=== PATIENT | male | born 1955 | race Caucasian/White ===

== ENCOUNTER 2020-06-15 17:01 | Inpatient (IN) | payer OTHER ==
[2020-06-15] MEDS ORDERED: Benzocaine/Cetylpyridinium/Menthol Lozenge MUCMEM ONE (18:02)
--- NOTE | 2020-06-15 18:05 | EDM.PDOC ---
ED HPI GENERAL MEDICAL PROBLEM - General Chief Complaint: Respiratory Problem Stated Complaint: LAW ENF[employer]CEMENT Time Seen by Provider: 06/15/20 17:20 Source of Information: Reports: Patient, RN, RN Notes Reviewed History Limitations: Reports: No Limitations - History of Present Illness INITIAL COMMENTS - FREE TEXT/NARRATIVE: Patient presents to the ED from the [facility] for complaints of shortness of breath and sore throat. The patient reports his symptoms began this past 06/12/2020. He reports he tested positive for COVID on Friday from a swab that was collected on 06/09/2020. He reports a history of COPD; he is a former smoker with a quit date in 2004. He states he is not currently taking any medication for COPD. He denies fever, shaking chills, chest pain, palpitations, dyspepsia, abdominal pain, nausea, vomiting, diarrhea, or muscle aches. He does attest to non-productive cough. He has not taken any medications for the cough of sore throat. He is not on O2 at baseline. 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 - Related Data Allergies Allergy/AdvReac Type Severity Reaction Status Date / Time bee venom protein (honey bee) Allergy Severe Anaphylactic Verified 06/15/20 16:56 Shock Home Meds: Home Meds Acetaminophen 975 mg PO Q8HR PRN 01/12/17 [History] Albuterol [Proventil Neb Soln] 2.5 mg NEB Q6HRRT PRN 01/12/17 [History] Allopurinol [Zyloprim] 100 mg PO DAILY 01/12/17 [History] Ammonium Lactate [Lac-Hydrin Five] 226 gm TP ASDIRECTED PRN 01/12/17 [History] Budesonide/Formoterol [Symbicort 80-4.5 MCG] 2 puff INH BID 01/12/17 [History] Cholecalciferol (Vitamin D3) [Vitamin D3] 1,000 units PO BID 01/12/17 [History] Dextrose [Glucose] 4 gm PO ASDIRECTED PRN 01/12/17 [History] Ibrutinib [Imbruvica] 420 mg PO DAILY 01/12/17 [History] Insulin Glarg,Human.Rec.Analog [LantUS] 32 unit SUBCUT ACBREAKFAST 01/12/17 [History] Lidocaine 5% 35.44 gm TOP BID 01/12/17 [History] Lisinopril 2.5 mg PO DAILY 01/12/17 [History] Loperamide [Imodium] 2 mg PO Q6H PRN 01/12/17 [History] Magnesium Oxide 420 mg PO BID 01/12/17 [History] OXcarbazepine [Trileptal] 450 mg PO TID 01/12/17 [History] Ondansetron [Zofran ODT] 8 mg PO Q8HR PRN 01/12/17 [History] Ranitidine [Zantac] 150 mg PO BID 01/12/17 [History] Sildenafil Citrate [Sildenafil] 100 mg PO ASDIRECTED PRN 01/12/17 [History] Triamcinolone Acetonide [Triamcinolone Acetonide 0.1% Crm] 15 gm TOP BID 01/12/17 [History] atorvaSTATin [Lipitor] 80 mg PO BEDTIME 01/12/17 [History] glipiZIDE [Glucotrol XL] 10 mg PO ACBREAKFAST 01/12/17 [History] metFORMIN HCl [Metformin HCl] 1,000 mg PO BIDMEALS 01/12/17 [History] Past Medical History Cardiovascular History: Reports: High Cholesterol, Hypertension Respiratory History: Reports: COPD Gastrointestinal History: Reports: GERD Genitourinary History: Reports: Diabetic Nephropathy Musculoskeletal History: Reports: Back Pain, Chronic, Gout Neurological History: Reports: Other (See Below) Other Neuro History: PTSD Psychiatric History: Reports: Addiction, Depression, PTSD Endocrine/Metabolic History: Reports: Diabetes, Type II, Obesity/BMI 30+ Hematologic History: Reports: None Immunologic History: Reports: Immunosuppression Oncologic (Cancer) History: Reports: Leukemia Dermatologic History: Reports: Eczema, Psoriasis - Infectious Disease History Infectious Disease History: Reports: Novel Coronavirus - Past Surgical History HEENT Surgical History: Reports: Cataract Surgery Cardiovascular Surgical History: Reports: None Respiratory Surgical History: Reports: None GI Surgical History: Reports: Colonoscopy, Hernia Repair/Other Male Surgical History: Reports: None Musculoskeletal Surgical History: Reports: None Oncologic Surgical History: Reports: Bone Marrow Aspiration Social & Family History - Family History Family Medical History: No Pertinent Family History - Tobacco Use Tobacco Use Status *Q: Never Tobacco User Second Hand Smoke Exposure: No - Caffeine Use Caffeine Use: Reports: None - Recreational Drug Use Recreational Drug Use: No ED ROS GENERAL - Review of Systems Review Of Systems: Comprehensive ROS is negative, except as noted in HPI. ED EXAM, GENERAL - Physical Exam Exam: See Below Exam Limited By: No Limitations General Appearance: Alert, Mild Distress Eye Exam: Bilateral Eye: EOMI, Normal Inspection, PERRL Ears: Normal External Exam, Normal Canal, Hearing Grossly Normal, Normal TMs Ear Exam: Bilateral Ear: Auricle Normal, Canal Normal, TM normal Nose: Normal Inspection Throat/Mouth: Normal Inspection, Normal Voice, No Airway Compromise. No: Normal Oropharynx (Dry mucous membranes) Head: Atraumatic, Normocephalic Neck: Normal Inspection, Supple, Non-Tender, Full Range of Motion. No: Lymphadenopathy (L), Lymphadenopathy (R) Respiratory/Chest: Chest Non-Tender, Rhonchi, Wheezing, Accessory Muscle Use Cardiovascular: No Edema, No Gallop, No JVD, No Murmur, No Rub, Irregularly Irregular Peripheral Pulses: 2+: Radial (L), Radial (R) GI/Abdominal: Normal Bowel Sounds, Soft, No Organomegaly, No Abnormal Bruit, No Mass (Male) Exam: Deferred Rectal (Males) Exam: Deferred Back Exam: Normal Inspection, Full Range of Motion Extremities: Normal Inspection, Normal Range of Motion, Non-Tender, No Pedal Edema, Normal Capillary Refill Neurological: Alert, Oriented, CN II-XII Intact, Normal Cognition, Normal Gait, No Motor/Sensory Deficits Psychiatric: Normal Affect, Normal Mood Skin Exam: Warm, Dry, Intact, Normal Color, No Rash. No: Ecchymosis, Erythema, Mottled, Pallor, Petechiae #1 Interpretation EKG Date: 06/15/20 Time: 17:33 Rhythm: A-Fib Rate (Beats/Min): 123 [place]: Normal P-Wave: Present QRS: Normal ST-T: Normal QT: Normal Comparison: No Change EKG Interpretation Comments: AFib; No evidence of acute ischemia Course - Vital Signs Last Recorded V/S: Last Vital Signs Temp 98.3 F 06/15/20 16:56 Pulse 91 06/15/20 16:56 Resp 20 06/15/20 16:56 BP 135/100 H 06/15/20 16:56 Pulse Ox 93 L 06/15/20 16:56 - Orders/Labs/Meds Orders: Active Orders 24 hr Category Date Time Status Admission Diagnosis [ADT] Stat ADT 06/15/20 19:56 Ordered Admission Status [Patient Status] [ADT] Routine ADT 06/15/20 19:56 Ordered Cardiac Monitoring [RC] . DIRECTED Care 06/15/20 19:56 Ordered EKG Documentation Completion [RC] STAT Care 06/15/20 17:13 Active Labs: Laboratory Tests 06/15/20 06/15/20 06/15/20 Range/Units 17:55 17:55 17:55 WBC 7.1 (5.0-10.0) 10^3/uL RBC 4.80 (4.6-6.2) 10^6/uL Hgb 14.2 (14.0-18.0) g/dL Hct 41.7 (40.0-54.0) % MCV 86.9 (80-100) fL MCH 29.6 (27.0-34.0) pg MCHC 34.1 (33.0-35.0) g/dL Plt Count 140 L (150-450) 10^3/uL Neut % (Auto) 63.7 (42.2-75.2) % Lymph % (Auto) 27.3 (20.5-50.1) % Ocean % (Auto) 8.7 H (2-8) % Eos % (Auto) 0.0 L (1.0-3.0) % Baso % (Auto) 0.3 (0.0-1.0) % Add Manual Diff Yes Neutrophils % (Manual) 53 (42-75) % Band Neutrophils % 15 % Lymphocytes % (Manual) 26 (20-50) % Monocytes % (Manual) 5 (2-8) % Myelocytes % 1 D-Dimer, Quantitative 430 H (0-400) ng/mL Sodium 134 L (136-145) mmol/L Potassium 4.4 (3.5-5.1) mmol/L Chloride 99 (98-107) mmol/L Carbon Dioxide 27 (21-32) mmol/L Anion Gap 12.4 (7-13) mEq/L BUN 28 H (7-18) mg/dL Creatinine 1.29 (0.70-1.30) mg/dL Est Cr Clr Drug Dosing 58.95 mL/min Estimated GFR (MDRD) 56 BUN/Creatinine Ratio 21.7 (No establ ref range) Glucose 279 H (74-99) mg/dL Lactic Acid (0.4-2.0) mmol/L Calcium 8.2 L (8.5-10.1) mg/dL Total Bilirubin 0.4 (0.2-1.0) mg/dL AST 28 (15-37) U/L ALT 41 (16-63) U/L Alkaline Phosphatase 55 (46-116) U/L Troponin I 0.017 (0.000-0.056) ng/mL Total Protein 6.0 L (6.4-8.2) g/dL Albumin 3.2 L (3.4-5.0) g/dL Globulin 2.8 Albumin/Globulin Ratio 1.14 06/15/20 Range/Units 17:55 WBC (5.0-10.0) 10^3/uL RBC (4.6-6.2) 10^6/uL Hgb (14.0-18.0) g/dL Hct (40.0-54.0) % MCV (80-100) fL MCH (27.0-34.0) pg MCHC (33.0-35.0) g/dL Plt Count (150-450) 10^3/uL Neut % (Auto) (42.2-75.2) % Lymph % (Auto) (20.5-50.1) % Ocean % (Auto) (2-8) % Eos % (Auto) (1.0-3.0) % Baso % (Auto) (0.0-1.0) % Add Manual Diff Neutrophils % (Manual) (42-75) % Band Neutrophils % % Lymphocytes % (Manual) (20-50) % Monocytes % (Manual) (2-8) % Myelocytes % D-Dimer, Quantitative (0-400) ng/mL Sodium (136-145) mmol/L Potassium (3.5-5.1) mmol/L Chloride (98-107) mmol/L Carbon Dioxide (21-32) mmol/L Anion Gap (7-13) mEq/L BUN (7-18) mg/dL Creatinine (0.70-1.30) mg/dL Est Cr Clr Drug Dosing mL/min Estimated GFR (MDRD) BUN/Creatinine Ratio (No establ ref range) Glucose (74-99) mg/dL Lactic Acid 1.3 (0.4-2.0) mmol/L Calcium (8.5-10.1) mg/dL Total Bilirubin (0.2-1.0) mg/dL AST (15-37) U/L ALT (16-63) U/L Alkaline Phosphatase (46-116) U/L Troponin I (0.000-0.056) ng/mL Total Protein (6.4-8.2) g/dL Albumin (3.4-5.0) g/dL Globulin Albumin/Globulin Ratio Meds: Medications Discontinued Medications Generic Name Dose Route Start Last Admin Trade Name Freq PRN Reason Stop Dose Admin Benzocaine/Menthol 1 lozenge 06/15/20 18:02 06/15/20 18:09 Cepacol Sore Throat MUCMEM 06/15/20 18:03 1 lozenge ONETIME ONE Administration Dexamethasone 6 mg 06/15/20 18:50 06/15/20 19:44 Dexamethasone PO 06/15/20 18:51 6 mg ONETIME ONE Administration - Re-Assessments/Exams Free Text/Narrative Re-Assessment/Exam: 06/15/20 CXR significant for COPD, inflammation, and COVID infection. Blood work unremarkable for acute processes. Given new onset AFib with COVID infection, case discussed with Dr. Machuca. Dr. Machuca kindly agreed to accept patient to observation with telemetry. Departure - Departure Time of Disposition: 19:59 Disposition: Refer to Observation Condition: Good Clinical Impression: Atrial fibrillation by electrocardiogram, Pneumonia due to COVID-19 virus - Discharge Information Forms: ED Department Discharge Sepsis Event Note (ED) - Evaluation Sepsis Screening Result: No Definite Risk - Focused Exam Vital Signs: Vital Signs Temp Pulse Resp BP Pulse Ox 06/15/20 16:56 98.3 F 91 20 135/100 H 93 L - My Orders Last 24 Hours: My Active Orders 06/15/20 17:13 EKG Documentation Completion [RC] STAT 06/15/20 19:56 Admission Diagnosis [ADT] Stat Admission Status [Patient Status] [ADT] Routine Cardiac Monitoring [RC] . DIRECTED - Assessment/Plan Last 24 Hours: My Active Orders 06/15/20 17:13 EKG Documentation Completion [RC] STAT 06/15/20 19:56 Admission Diagnosis [ADT] Stat Admission Status [Patient Status] [ADT] Routine Cardiac Monitoring [RC] . DIRECTED
[2020-06-15 18:28] LABS: ANION GAP 12.4 mEq/L (7-13)
[2020-06-15] MEDS ORDERED: Dexamethasone 6 MG TABLET PO ONE (18:50)
--- NOTE | 2020-06-15 19:12 | CR ---
PROCEDURE INFORMATION: Exam: XR Chest, 1 View Exam date and time: 06/15/2020 6:55 PM Age: 65 years old Clinical indication: Shortness of breath; Patient HX: Covid +; Additional info: Chest pain TECHNIQUE: Imaging protocol: XR of the chest Views: 1 view. COMPARISON: CT Chest Abdomen Pelvis w Cont 10/21/2018 1:33 PM FINDINGS: Lungs: Persistent bandlike atelectasis left base may reflect compressive atelectasis due to diaphragmatic elevation. There is mild nonspecific patchy linear density at right lung base which could be atelectatic, or inflammatory. Trace fluid right minor fissureThere is no interstitial disease. There is mild nonspecific prominence of the pulmonary vasculature. Pleural space: Small right pleural effusion. Heart/Mediastinum: Mild cardiomegaly. Diaphragm: There is chronic elevation of the left hemidiaphragm Bones/joints: No acute bony findings are identified. IMPRESSION: 1. Findings suggest an element of pulmonary venous hypertension. There is no overt sign of pulmonary edema. Volume overload cannot be excluded. 2. Atelectasis left base is persistent is likely compressive and is likely related to diaphragmatic elevation. 3. There is mild nonspecific patchy linear density at right lung base which could be atelectatic, or inflammatory.
[2020-06-15] MEDS ORDERED: Ondansetron 4 MG/2 ML SDV IVPUSH PRN (20:21)
[2020-06-15] MEDS ORDERED: Ondansetron 4 MG Tab.DIS PO PRN (20:21)
[2020-06-15] MEDS ORDERED: 50% Dextrose in Water 50 ML Syringe IV PRN (20:21)
[2020-06-15] MEDS ORDERED: Glucagon,Human Recombinant 1 MG Vial IM PRN ×2 (20:21)
[2020-06-15] MEDS ORDERED: 50% Dextrose in Water 50 ML Syringe IVPUSH PRN (20:21)
[2020-06-15] MEDS ORDERED: diphenhydrAMINE 50 MG/ML SDV IVPUSH ONE (20:44)
[2020-06-15] MEDS ORDERED: Albuterol 0.083% 2.5 MG/3 ML Neb Soln NEB PRN (20:49)
[2020-06-15] MEDS ORDERED: Loperamide 2 MG Cap PO PRN (20:49)
--- NOTE | 2020-06-15 21:00 | PCM.HP ---
H&P History of Present Illness - General Date of Service: 06/15/20 Admit Problem/Dx: Admission Diagnosis/Problem Admission Diagnosis/Problem Atrial fibrillation by electrocardiogram Source of Information: Patient, Old Records, Provider History Limitations: Reports: No Limitations - History of Present Illness Initial Comments - Free Text/Narative: Mr. Stafford is a 65-year-old male with medical history significant for diabetes, COPD, CLL on ibrutinib, and past medical history of tobacco use who quit in 2004 who was brought to the ED by law enforcement for shortness of breath. Patient reports that he was tested for COVID-19 as part of mass testing on Friday, . Reports that his test came back positive on 06/12/2020. States that he started having shortness of breath yesterday. States that he is short of breath at rest and not worsens with activity. Reports that he has chronic cough which is unchanged from baseline. Denies any fevers, chills, nausea, vomiting, diarrhea, constipation, dysuria, hematuria, change in taste or smell, hemoptysis, melena, hematochezia, or any other symptoms. In the ED, chest x-ray showed bilateral pulmonary infiltrates his D-dimer was not elevated at 430. Sodium was borderline low at 134. Patient was saturating well on room air but was placed on oxygen for comfort. - Related Data Allergies/Adverse Reactions: Allergies Allergy/AdvReac Type Severity Reaction Status Date / Time bee venom protein (honey bee) Allergy Severe Anaphylactic Verified 06/15/20 16:56 Shock Home Medications: Home Meds Acetaminophen 975 mg PO Q8HR PRN 01/12/17 [History] Albuterol [Proventil Neb Soln] 2.5 mg NEB Q6HRRT PRN 01/12/17 [History] Allopurinol [Zyloprim] 100 mg PO DAILY 01/12/17 [History] Ammonium Lactate [Lac-Hydrin Five] 226 gm TP ASDIRECTED PRN 01/12/17 [History] Budesonide/Formoterol [Symbicort 80-4.5 MCG] 2 puff INH BID 01/12/17 [History] Cholecalciferol (Vitamin D3) [Vitamin D3] 1,000 units PO BID 01/12/17 [History] Dextrose [Glucose] 4 gm PO ASDIRECTED PRN 01/12/17 [History] Ibrutinib [Imbruvica] 420 mg PO DAILY 01/12/17 [History] Insulin Glarg,Human.Rec.Analog [LantUS] 32 unit SUBCUT ACBREAKFAST 01/12/17 [History] Lidocaine 5% 35.44 gm TOP BID 01/12/17 [History] Lisinopril 2.5 mg PO DAILY 01/12/17 [History] Loperamide [Imodium] 2 mg PO Q6H PRN 01/12/17 [History] Magnesium Oxide 420 mg PO BID 01/12/17 [History] OXcarbazepine [Trileptal] 450 mg PO TID 01/12/17 [History] Ondansetron [Zofran ODT] 8 mg PO Q8HR PRN 01/12/17 [History] Ranitidine [Zantac] 150 mg PO BID 01/12/17 [History] Sildenafil Citrate [Sildenafil] 100 mg PO ASDIRECTED PRN 01/12/17 [History] Triamcinolone Acetonide [Triamcinolone Acetonide 0.1% Crm] 15 gm TOP BID 01/12/17 [History] atorvaSTATin [Lipitor] 80 mg PO BEDTIME 01/12/17 [History] glipiZIDE [Glucotrol XL] 10 mg PO ACBREAKFAST 01/12/17 [History] metFORMIN HCl [Metformin HCl] 1,000 mg PO BIDMEALS 01/12/17 [History] Past Medical History Cardiovascular History: Reports: High Cholesterol, Hypertension Respiratory History: Reports: COPD Gastrointestinal History: Reports: GERD Genitourinary History: Reports: Diabetic Nephropathy Musculoskeletal History: Reports: Back Pain, Chronic, Gout Neurological History: Reports: Other (See Below) Other Neuro History: PTSD Psychiatric History: Reports: Addiction, Depression, PTSD Endocrine/Metabolic History: Reports: Diabetes, Type II, Obesity/BMI 30+ Hematologic History: Reports: None Immunologic History: Reports: Immunosuppression Oncologic (Cancer) History: Reports: Leukemia Dermatologic History: Reports: Eczema, Psoriasis - Infectious Disease History Infectious Disease History: Reports: Novel Coronavirus - Past Surgical History HEENT Surgical History: Reports: Cataract Surgery Cardiovascular Surgical History: Reports: None Respiratory Surgical History: Reports: None GI Surgical History: Reports: Colonoscopy, Hernia Repair/Other Male Surgical History: Reports: None Musculoskeletal Surgical History: Reports: None Oncologic Surgical History: Reports: Bone Marrow Aspiration Social & Family History - Family History Family Medical History: No Pertinent Family History - Tobacco Use Tobacco Use Status *Q: Never Tobacco User Second Hand Smoke Exposure: No - Caffeine Use Caffeine Use: Reports: None - Recreational Drug Use Recreational Drug Use: No H&P Review of Systems - Review of Systems: Review Of Systems: Comprehensive ROS is negative, except as noted in HPI. Exam - Exam Exam: See Below - Vital Signs Vital Signs: Last Vital Signs Temp 98.9 F 06/15/20 20:22 Pulse 92 06/15/20 20:22 Resp 24 H 06/15/20 20:22 BP 125/79 06/15/20 20:22 Pulse Ox 94 L 06/15/20 20:22 Weight: 233 lb 3.2 oz - Exam Quality Assessment: Supplemental Oxygen (2L via NC) General: Alert, Oriented, Cooperative, Mild Distress HEENT: Conjunctiva Clear, EOMI, Hearing Intact, Mucosa Moist & [place] Neck: Supple, Trachea Midline Lungs: Rales Cardiovascular: Regular Rate, Normal S1, Normal S2, Irregular Rhythm GI/Abdominal Exam: Normal Bowel Sounds, Soft, Non-Tender, No Distention Extremities: Normal Inspection, Non-Tender Peripheral Pulses: 2+: Radial (L), Dorsalis Pedis (L), Dorsalis Pedis (R) Skin: Warm, Dry, Intact Neuro Extensive - Mental Status: Alert, Oriented x3, Normal Mood/Affect Psychiatric: Alert, Normal Affect, Normal Mood - Patient Data Lab Results Last 24 hrs: Laboratory Results - last 24 hr 06/15/20 06/15/20 06/15/20 Range/Units 17:55 17:55 17:55 WBC 7.1 (5.0-10.0) 10^3/uL RBC 4.80 (4.6-6.2) 10^6/uL Hgb 14.2 (14.0-18.0) g/dL Hct 41.7 (40.0-54.0) % MCV 86.9 (80-100) fL MCH 29.6 (27.0-34.0) pg MCHC 34.1 (33.0-35.0) g/dL Plt Count 140 L (150-450) 10^3/uL Neut % (Auto) 63.7 (42.2-75.2) % Lymph % (Auto) 27.3 (20.5-50.1) % [place] % (Auto) 8.7 H (2-8) % Eos % (Auto) 0.0 L (1.0-3.0) % Baso % (Auto) 0.3 (0.0-1.0) % Add Manual Diff Yes Neutrophils % (Manual) 53 (42-75) % Band Neutrophils % 15 % Lymphocytes % (Manual) 26 (20-50) % Monocytes % (Manual) 5 (2-8) % Myelocytes % 1 D-Dimer, Quantitative 430 H (0-400) ng/mL Sodium 134 L (136-145) mmol/L Potassium 4.4 (3.5-5.1) mmol/L Chloride 99 (98-107) mmol/L Carbon Dioxide 27 (21-32) mmol/L Anion Gap 12.4 (7-13) mEq/L BUN 28 H (7-18) mg/dL Creatinine 1.29 (0.70-1.30) mg/dL Est Cr Clr Drug Dosing 58.95 mL/min Estimated GFR (MDRD) 56 BUN/Creatinine Ratio 21.7 (No establ ref range) Glucose 279 H (74-99) mg/dL Lactic Acid (0.4-2.0) mmol/L Calcium 8.2 L (8.5-10.1) mg/dL Total Bilirubin 0.4 (0.2-1.0) mg/dL AST 28 (15-37) U/L ALT 41 (16-63) U/L Alkaline Phosphatase 55 (46-116) U/L Troponin I 0.017 (0.000-0.056) ng/mL Total Protein 6.0 L (6.4-8.2) g/dL Albumin 3.2 L (3.4-5.0) g/dL Globulin 2.8 Albumin/Globulin Ratio 1.14 06/15/20 Range/Units 17:55 WBC (5.0-10.0) 10^3/uL RBC (4.6-6.2) 10^6/uL Hgb (14.0-18.0) g/dL Hct (40.0-54.0) % MCV (80-100) fL MCH (27.0-34.0) pg MCHC (33.0-35.0) g/dL Plt Count (150-450) 10^3/uL Neut % (Auto) (42.2-75.2) % Lymph % (Auto) (20.5-50.1) % [place] % (Auto) (2-8) % Eos % (Auto) (1.0-3.0) % Baso % (Auto) (0.0-1.0) % Add Manual Diff Neutrophils % (Manual) (42-75) % Band Neutrophils % % Lymphocytes % (Manual) (20-50) % Monocytes % (Manual) (2-8) % Myelocytes % D-Dimer, Quantitative (0-400) ng/mL Sodium (136-145) mmol/L Potassium (3.5-5.1) mmol/L Chloride (98-107) mmol/L Carbon Dioxide (21-32) mmol/L Anion Gap (7-13) mEq/L BUN (7-18) mg/dL Creatinine (0.70-1.30) mg/dL Est Cr Clr Drug Dosing mL/min Estimated GFR (MDRD) BUN/Creatinine Ratio (No establ ref range) Glucose (74-99) mg/dL Lactic Acid 1.3 (0.4-2.0) mmol/L Calcium (8.5-10.1) mg/dL Total Bilirubin (0.2-1.0) mg/dL AST (15-37) U/L ALT (16-63) U/L Alkaline Phosphatase (46-116) U/L Troponin I (0.000-0.056) ng/mL Total Protein (6.4-8.2) g/dL Albumin (3.4-5.0) g/dL Globulin Albumin/Globulin Ratio Result Diagrams: 06/15/20 17:55 06/15/20 17:55 - Problem List (1) COPD (chronic obstructive pulmonary disease) SNOMED Code(s): 23390180 ICD Code: J44.9 - CHRONIC OBSTRUCTIVE PULMONARY DISEASE, UNSPECIFIED Status: Acute Current Visit: Yes (2) CLL (chronic lymphocytic leukemia) SNOMED Code(s): 95734835 ICD Code: C91.10 - CHRONIC LYMPHOCYTIC LEUK OF B-CELL TYPE NOT ACHIEVE REMIS Status: Acute Current Visit: Yes (3) Obesity SNOMED Code(s): 498733637, 033999148 ICD Code: E66.9 - OBESITY, UNSPECIFIED Status: Acute Current Visit: Yes (4) Hyponatremia SNOMED Code(s): 81765820 ICD Code: E87.1 - HYPO-OSMOLALITY AND HYPONATREMIA Status: Acute Current Visit: Yes (5) Atrial fibrillation by electrocardiogram SNOMED Code(s): 717514194 ICD Code: I48.91 - UNSPECIFIED ATRIAL FIBRILLATION Status: Acute Current Visit: No (6) Pneumonia due to COVID-19 virus SNOMED Code(s): 601000406267282771 ICD Code: U07.1 - COVID-19; J12.89 - OTHER VIRAL PNEUMONIA Status: Acute Current Visit: No Problem List Initiated/Reviewed/Updated: Yes Orders Last 24hrs: Active Orders 24 hr Category Date Time Status Admission Diagnosis [ADT] Stat ADT 06/15/20 19:56 Ordered Admission Status [Patient Status] [ADT] Routine ADT 06/15/20 19:56 Active Blood Glucose Check, Bedside [RC] QIDACANDBED Care 06/15/20 20:21 Active Cardiac Monitoring [RC] . DIRECTED Care 06/15/20 19:56 Active Diabetes Education [RC] Click to Edit Care 06/15/20 20:22 Active EKG Documentation Completion [RC] STAT Care 06/15/20 17:13 Active Notify Provider [RC] PRN Care 06/15/20 20:22 Active Oxygen Therapy [RC] PRN Care 06/15/20 20:22 Active RT Aerosol Therapy [RC] ASDIRECTED Care 06/15/20 20:50 Ordered Up ad Alejandrina [RC] ASDIRECTED Care 06/15/20 20:21 Active VTE/DVT Education [RC] PER UNIT ROUTINE Care 06/15/20 20:22 Active Verify Patient Consent Obtain [RC] ASDIRECTED Care 06/15/20 20:44 Ordered Vital Signs [RC] Q4H Care 06/15/20 20:22 Active Consistent Carbohydrate Diet [DIET] Diet 06/15/20 Dinner Active BASIC METABOLIC PANEL,BMP [CHEM] AM Lab 06/16/20 05:11 Ordered CBC WITH AUTO DIFF [HEME] AM Lab 06/16/20 05:11 Ordered CRP [C-REACTIVE PROTEIN] [REF] DAILY Lab 06/15/20 21:00 Ordered D-DIMER QUANTITATIVE [COAG] DAILY Lab 06/16/20 05:11 Ordered D-DIMER QUANTITATIVE [COAG] DAILY Lab 06/17/20 05:11 Ordered D-DIMER QUANTITATIVE [COAG] DAILY Lab 06/18/20 05:11 Ordered D-DIMER QUANTITATIVE [COAG] DAILY Lab 06/19/20 05:11 Ordered FRESH FROZEN PLASMA [BBK] Routine Lab 06/15/20 20:44 Ordered HEPATIC FUNCTION PANEL,HFP [CHEM] DAILY Lab 06/16/20 21:00 Ordered HEPATIC FUNCTION PANEL,HFP [CHEM] DAILY Lab 06/17/20 21:00 Ordered HEPATIC FUNCTION PANEL,HFP [CHEM] DAILY Lab 06/18/20 21:00 Ordered HEPATIC FUNCTION PANEL,HFP [CHEM] DAILY Lab 06/19/20 21:00 Ordered HEPATIC FUNCTION PANEL,HFP [CHEM] Stat Lab 06/15/20 20:46 Ordered MAGNESIUM [CHEM] AM Lab 06/16/20 05:11 Ordered PHOSPHORUS [CHEM] AM Lab 06/16/20 05:11 Ordered Acetaminophen [TylenoL] Med 06/15/20 20:21 Active 650 mg PO Q4H PRN Albuterol [Proventil Neb Soln] Med 06/15/20 20:49 Ordered 2.5 mg NEB Q6HRRT PRN Budesonide/Formoterol Med 06/15/20 21:00 Ordered 2 puff INH BID Cholecalciferol (Vitamin D3) [Vitamin D3] Med 06/15/20 21:00 Ordered 1,000 units PO BID Dextrose 50% in Water Med 06/15/20 20:21 Active 25 ml IVPUSH ASDIRECTED PRN Dextrose 50% in Water Med 06/15/20 20:21 Active 50 ml IV ASDIRECTED PRN Docusate Sodium/Sennosides [Senna Plus] Med 06/15/20 20:21 Active 1 tab PO BEDTIME PRN Glucagon,Human Recombinant [GlucaGen] Med 06/15/20 20:21 Active 1 mg IM ASDIRECTED PRN Glucagon,Human Recombinant [GlucaGen] Med 06/15/20 20:21 Active 1 mg IM ONETIME PRN Insulin Lispro [HumaLOG] Med 06/15/20 21:00 Ordered See Protocol SUBCUT WITHMEALSANDBED Lisinopril [Lisinopril] Med 06/16/20 09:00 Ordered 2.5 mg PO DAILY Loperamide [Imodium] Med 06/15/20 20:49 Ordered 2 mg PO Q6H PRN Magnesium Oxide [Magnesium Oxide] Med 06/15/20 21:00 Ordered 420 mg PO BID OXcarbazepine [Trileptal] Med 06/15/20 21:00 Ordered 450 mg PO TID Ondansetron [Zofran ODT] Med 06/15/20 20:21 Active 4 mg PO Q6H PRN Ondansetron [Zofran] Med 06/15/20 20:21 Active 4 mg IVPUSH Q6H PRN Ranitidine [Zantac] Med 06/15/20 21:00 Ordered 150 mg PO BID Remdesivir 100 mg Med 06/16/20 21:00 Ordered Sodium Chloride 0.9% [Normal Saline] 100 ml IV Q24H Remdesivir 200 mg Med 06/15/20 20:46 Ordered Sodium Chloride 0.9% [Normal Saline] 210 ml IV ONETIME allopurinoL [Zyloprim] Med 06/16/20 09:00 Ordered 100 mg PO DAILY dexAMETHasone [Decadron] Med 06/16/20 09:00 Ordered 6 mg IVPUSH Q24H diphenhydrAMINE [Benadryl] Med 06/15/20 20:44 Once 25 mg IVPUSH ONETIME ONE Transfuse Fresh Frozen Plasma [COMM] Routine Oth 06/15/20 20:44 Ordered Resuscitation Status Routine Resus Stat 06/15/20 20:21 Ordered Medication Orders Acetaminophen (Tylenol) 650 mg PO Q4H PRN PRN Reason: Pain Albuterol (Proventil Neb Soln) 2.5 mg NEB Q6HRRT PRN PRN Reason: Shortness of Breath Allopurinol (Zyloprim) 100 mg PO DAILY SILAS Cholecalciferol (Vitamin D3) mcg PO BID SILAS Dexamethasone (Decadron) 6 mg IVPUSH Q24H SILAS Stop: 06/24/20 09:01 Dextrose/Water (Dextrose 50% In Water) 25 ml IVPUSH ASDIRECTED PRN PRN Reason: Hypoglycemia Dextrose/Water (Dextrose 50% In Water) 50 ml IV ASDIRECTED PRN PRN Reason: Hypoglycemia Diphenhydramine HCl (Benadryl) 25 mg IVPUSH ONETIME ONE Stop: 06/15/20 20:45 Glucagon (Glucagen) 1 mg IM ONETIME PRN PRN Reason: Hypoglycemia Glucagon (Glucagen) 1 mg IM ASDIRECTED PRN PRN Reason: Hypoglycemia Remdesivir 200 mg/ Sodium (Chloride) 210 mls @ 210 mls/hr IV ONETIME ONE Stop: 06/15/20 20:47 Remdesivir 100 mg/ Sodium (Chloride) 100 mls @ 100 mls/hr IV Q24H SILAS Stop: 06/19/20 21:59 Insulin Human Lispro (Humalog) 0 unit SUBCUT WITHMEALSANDBED SILAS; Protocol Loperamide HCl (Imodium) 2 mg PO Q6H PRN PRN Reason: Diarrhea Non-Formulary Medication (Budesonide/Formoterol) 2 puff INH BID [facility] Non-Formulary Medication (Lisinopril [Lisinopril]) 2.5 mg PO DAILY [facility] Non-Formulary Medication (Magnesium Oxide [Magnesium Oxide]) 420 mg PO BID [facility] Non-Formulary Medication (Ranitidine [Zantac]) 150 mg PO BID [facility]IL[facility] Ondansetron HCl (Zofran Odt) 4 mg PO Q6H PRN PRN Reason: nausea, able to take PO Ondansetron HCl (Zofran) 4 mg IVPUSH Q6H PRN PRN Reason: Nausea/Vomiting Oxcarbazepine (Trileptal) 450 mg PO TID [facility]IL[facility] Senna/Docusate Sodium (Senna Plus) 1 tab PO BEDTIME PRN PRN Reason: Constipation Assessment/Plan Comment:: COVID-19 pneumonia: Patient presented with shortness of breath. Chest x-ray showing bilateral groundglass opacities concerning for pneumonia. Patient desaturated to 89% on room air during time of my assessment. Telemetry Supplemental oxygen, titrate to SPO2 of 88 to 92% Incentive spirometer Decadron Remdesivir Convalescent plasma Patient understands that convalescent plasma and remdesivir investigational therapies and that risks and benefits of treatment are not supported by extensive studies. He agrees to receiving both therapies. #New onset A. fib: Rate controlled. Likely due to respiratory illness from COVID-19 versus COPD. However, COPD seems to be well controlled. Telemetry monitoring [id number] score is 2 for age and history of diabetes. Needs lifetime anticoagulation. Will discuss in the morning #Diabetes mellitus Hold oral diabetes medications Cover with sliding scale insulin and hypoglycemia protocol #Hypertension Continue lisinopril #Obesity Weight loss counseling DVT prophylaxis: Eliquis GI prophylaxis: Diabetic diet CODE STATUS: Full code per patient preference
[2020-06-15] MEDS: Insulin Lispro 100 Units/ML 3 ML Vial SUBCUT SCH (21:49)
[2020-06-15] MEDS: Famotidine 20 MG Tab PO SCH (21:52)
[2020-06-15] MEDS: Cholecalciferol (Vitamin D3) 25 MCG Tab PO SCH (21:53)
[2020-06-15] MEDS: OXcarbazepine 300 MG Tab PO SCH (21:54)
[2020-06-15] MEDS: Formoterol/Mometasone 100-5 MCG 8.8 GM Inhaler IH SCH (22:13)
[2020-06-15] MEDS ORDERED: Benzocaine/Cetylpyridinium/Menthol Lozenge MUCMEM PRN (23:00)
[2020-06-15] MEDS: Acetaminophen 325 MG Tab PO PRN (23:40)
[2020-06-16] MEDS ORDERED: diphenhydrAMINE 50 MG/ML SDV ONE (05:13)
[2020-06-16 06:55] LABS: ANION GAP 14.5 mEq/L (7-13); CHLORIDE,CL 99 mmol/L (98-107); SODIUM,NA 134 mmol/L (136-145)
[2020-06-16] MEDS: Insulin Lispro 100 Units/ML 3 ML Vial SUBCUT SCH ×4 (08:06→22:40)
[2020-06-16] MEDS: Formoterol/Mometasone 100-5 MCG 8.8 GM Inhaler IH SCH ×2 (08:09→20:51)
[2020-06-16] MEDS: Lisinopril 5 MG Tab PO SCH (08:13)
[2020-06-16] MEDS: OXcarbazepine 300 MG Tab PO SCH ×3 (08:13→20:52)
[2020-06-16] MEDS: Cholecalciferol (Vitamin D3) 25 MCG Tab PO SCH ×2 (08:13→20:40)
[2020-06-16] MEDS: Famotidine 20 MG Tab PO SCH ×2 (08:13→20:39)
[2020-06-16] MEDS: Dexamethasone 4 MG/ML SDV IVPUSH SCH (08:14)
[2020-06-16] MEDS: Allopurinol 100 MG Tab PO SCH (08:14)
[2020-06-16] MEDS ORDERED: Glucagon,Human Recombinant 1 MG Vial IM PRN ×3 (08:46→14:23)
[2020-06-16] MEDS ORDERED: 50% Dextrose in Water 50 ML Syringe IV PRN ×3 (08:46→14:23)
[2020-06-16] MEDS ORDERED: Diltiazem IR 30 MG Tab PO SCH ×2 (09:00→18:15)
[2020-06-16] MEDS ORDERED: Metoprolol Tartrate 25 MG Tab PO SCH (09:00)
[2020-06-16] MEDS ORDERED: Metoprolol Tartrate 5 MG/5 ML SDV IVPUSH ONE (09:38)
[2020-06-16] MEDS: Acetaminophen 325 MG Tab PO PRN ×2 (09:46→21:36)
[2020-06-16] MEDS: Apixaban 5 MG Tab PO SCH ×2 (09:47→20:39)
[2020-06-16] MEDS ORDERED: 50% Dextrose in Water 50 ML Syringe IVPUSH ONE ×2 (10:19→11:00)
--- NOTE | 2020-06-16 10:30 | PCM.PN ---
- General Info Date of Service: 06/16/20 Admission Dx/Problem (Free Text): Admission Diagnosis/Problem Admission Diagnosis/Problem Atrial fibrillation by electrocardiogram Subjective Update: Patient continues to have O2 requirement. Tachycardic today. Denies fevers, chills, chest pain, shortness of breath, n/v/d/c, dysuria, or any new symptoms. - Review of Systems General: Reports: No Symptoms HEENT: Reports: No Symptoms Pulmonary: Reports: Shortness of Breath Cardiovascular: Reports: No Symptoms Gastrointestinal: Reports: No Symptoms Genitourinary: Reports: No Symptoms Musculoskeletal: Reports: No Symptoms Skin: Reports: No Symptoms Neurological: Reports: No Symptoms Psychiatric: Reports: No Symptoms - Patient Data Vitals - Most Recent: Last Vital Signs Temp 97.3 F 06/16/20 09:42 Pulse 146 H 06/16/20 09:48 Resp 22 H 06/16/20 09:42 BP 99/78 06/16/20 09:48 Pulse Ox 94 L 06/16/20 09:42 Weight - Most Recent: 233 lb 3.2 oz I&O - Last 24 Hours: Intake & Output 06/15/20 06/16/20 06/16/20 22:59 06:59 14:59 Intake Total 250 806 Balance 250 806 Lab Results Last 24 Hours: Laboratory Results - last 24 hr 06/15/20 06/15/20 06/15/20 Range/Units 17:55 17:55 17:55 WBC 7.1 (5.0-10.0) 10^3/uL RBC 4.80 (4.6-6.2) 10^6/uL Hgb 14.2 (14.0-18.0) g/dL Hct 41.7 (40.0-54.0) % MCV 86.9 (80-100) fL MCH 29.6 (27.0-34.0) pg MCHC 34.1 (33.0-35.0) g/dL Plt Count 140 L (150-450) 10^3/uL Neut % (Auto) 63.7 (42.2-75.2) % Lymph % (Auto) 27.3 (20.5-50.1) % [place]undy % (Auto) 8.7 H (2-8) % Eos % (Auto) 0.0 L (1.0-3.0) % Baso % (Auto) 0.3 (0.0-1.0) % Add Manual Diff Yes Neutrophils % (Manual) 53 (42-75) % Band Neutrophils % 15 % Lymphocytes % (Manual) 26 (20-50) % Monocytes % (Manual) 5 (2-8) % Myelocytes % 1 D-Dimer, Quantitative 430 H (0-400) ng/mL Sodium 134 L (136-145) mmol/L Potassium 4.4 (3.5-5.1) mmol/L Chloride 99 (98-107) mmol/L Carbon Dioxide 27 (21-32) mmol/L Anion Gap 12.4 (7-13) mEq/L BUN 28 H (7-18) mg/dL Creatinine 1.29 (0.70-1.30) mg/dL Est Cr Clr Drug Dosing 58.95 mL/min Estimated GFR (MDRD) 56 BUN/Creatinine Ratio 21.7 (No establ ref range) Glucose 279 H (74-99) mg/dL POC Glucose (70-105) mg/dl Lactic Acid (0.4-2.0) mmol/L Calcium 8.2 L (8.5-10.1) mg/dL Phosphorus (2.6-4.7) mg/dL Magnesium (1.8-2.4) mg/dL Total Bilirubin 0.4 (0.2-1.0) mg/dL Direct Bilirubin (0.0-0.2) mg/dL Indirect Bilirubin AST 28 (15-37) U/L ALT 41 (16-63) U/L Alkaline Phosphatase 55 (46-116) U/L Troponin I 0.017 (0.000-0.056) ng/mL C-Reactive Protein (0.0-0.9) mg/dL Total Protein 6.0 L (6.4-8.2) g/dL Albumin 3.2 L (3.4-5.0) g/dL Globulin 2.8 Albumin/Globulin Ratio 1.14 Blood Type 06/15/20 06/15/20 06/15/20 Range/Units 17:55 17:55 17:55 WBC (5.0-10.0) 10^3/uL RBC (4.6-6.2) 10^6/uL Hgb (14.0-18.0) g/dL Hct (40.0-54.0) % MCV (80-100) fL MCH (27.0-34.0) pg MCHC (33.0-35.0) g/dL Plt Count (150-450) 10^3/uL Neut % (Auto) (42.2-75.2) % Lymph % (Auto) (20.5-50.1) % Dundy % (Auto) (2-8) % Eos % (Auto) (1.0-3.0) % Baso % (Auto) (0.0-1.0) % Add Manual Diff Neutrophils % (Manual) (42-75) % Band Neutrophils % % Lymphocytes % (Manual) (20-50) % Monocytes % (Manual) (2-8) % Myelocytes % D-Dimer, Quantitative (0-400) ng/mL Sodium (136-145) mmol/L Potassium (3.5-5.1) mmol/L Chloride (98-107) mmol/L Carbon Dioxide (21-32) mmol/L Anion Gap (7-13) mEq/L BUN (7-18) mg/dL Creatinine (0.70-1.30) mg/dL Est Cr Clr Drug Dosing mL/min Estimated GFR (MDRD) BUN/Creatinine Ratio (No establ ref range) Glucose (74-99) mg/dL POC Glucose (70-105) mg/dl Lactic Acid 1.3 (0.4-2.0) mmol/L Calcium (8.5-10.1) mg/dL Phosphorus (2.6-4.7) mg/dL Magnesium (1.8-2.4) mg/dL Total Bilirubin (0.2-1.0) mg/dL Direct Bilirubin (0.0-0.2) mg/dL Indirect Bilirubin AST (15-37) U/L ALT (16-63) U/L Alkaline Phosphatase (46-116) U/L Troponin I (0.000-0.056) ng/mL C-Reactive Protein 3.5 H (0.0-0.9) mg/dL Total Protein (6.4-8.2) g/dL Albumin (3.4-5.0) g/dL Globulin Albumin/Globulin Ratio Blood Type O POSITIVE 06/15/20 06/16/20 06/16/20 Range/Units 21:44 06:20 06:20 WBC 7.1 (5.0-10.0) 10^3/uL RBC 5.18 (4.6-6.2) 10^6/uL Hgb 15.2 (14.0-18.0) g/dL Hct 44.7 (40.0-54.0) % MCV 86.3 (80-100) fL MCH 29.3 (27.0-34.0) pg MCHC 34.0 (33.0-35.0) g/dL Plt Count 148 L (150-450) 10^3/uL Neut % (Auto) 66.0 (42.2-75.2) % Lymph % (Auto) 25.0 (20.5-50.1) % Dundy % (Auto) 8.7 H (2-8) % Eos % (Auto) 0.0 L (1.0-3.0) % Baso % (Auto) 0.3 (0.0-1.0) % Add Manual Diff Neutrophils % (Manual) (42-75) % Band Neutrophils % % Lymphocytes % (Manual) (20-50) % Monocytes % (Manual) (2-8) % Myelocytes % D-Dimer, Quantitative (0-400) ng/mL Sodium 134 L (136-145) mmol/L Potassium 5.5 H (3.5-5.1) mmol/L Chloride 99 (98-107) mmol/L Carbon Dioxide 26 (21-32) mmol/L Anion Gap 14.5 H (7-13) mEq/L BUN 27 H (7-18) mg/dL Creatinine 1.11 (0.70-1.30) mg/dL Est Cr Clr Drug Dosing 70.66 mL/min Estimated GFR (MDRD) > 60 BUN/Creatinine Ratio (No establ ref range) Glucose 287 H (74-99) mg/dL POC Glucose 361 H (70-105) mg/dl Lactic Acid (0.4-2.0) mmol/L Calcium 8.4 L (8.5-10.1) mg/dL Phosphorus 3.5 (2.6-4.7) mg/dL Magnesium 1.7 L (1.8-2.4) mg/dL Total Bilirubin (0.2-1.0) mg/dL Direct Bilirubin (0.0-0.2) mg/dL Indirect Bilirubin AST (15-37) U/L ALT (16-63) U/L Alkaline Phosphatase (46-116) U/L Troponin I (0.000-0.056) ng/mL C-Reactive Protein (0.0-0.9) mg/dL Total Protein (6.4-8.2) g/dL Albumin (3.4-5.0) g/dL Globulin Albumin/Globulin Ratio Blood Type 06/16/20 06/16/20 06/16/20 Range/Units 06:20 06:20 07:47 WBC (5.0-10.0) 10^3/uL RBC (4.6-6.2) 10^6/uL Hgb (14.0-18.0) g/dL Hct (40.0-54.0) % MCV (80-100) fL MCH (27.0-34.0) pg MCHC (33.0-35.0) g/dL Plt Count (150-450) 10^3/uL Neut % (Auto) (42.2-75.2) % Lymph % (Auto) (20.5-50.1) % Dundy % (Auto) (2-8) % Eos % (Auto) (1.0-3.0) % Baso % (Auto) (0.0-1.0) % Add Manual Diff Neutrophils % (Manual) (42-75) % Band Neutrophils % % Lymphocytes % (Manual) (20-50) % Monocytes % (Manual) (2-8) % Myelocytes % D-Dimer, Quantitative 388 (0-400) ng/mL Sodium (136-145) mmol/L Potassium (3.5-5.1) mmol/L Chloride (98-107) mmol/L Carbon Dioxide (21-32) mmol/L Anion Gap (7-13) mEq/L BUN (7-18) mg/dL Creatinine (0.70-1.30) mg/dL Est Cr Clr Drug Dosing mL/min Estimated GFR (MDRD) BUN/Creatinine Ratio (No establ ref range) Glucose (74-99) mg/dL POC Glucose 302 H (70-105) mg/dl Lactic Acid (0.4-2.0) mmol/L Calcium (8.5-10.1) mg/dL Phosphorus (2.6-4.7) mg/dL Magnesium (1.8-2.4) mg/dL Total Bilirubin 0.4 (0.2-1.0) mg/dL Direct Bilirubin 0.2 (0.0-0.2) mg/dL Indirect Bilirubin 0.2 AST 30 (15-37) U/L ALT 44 (16-63) U/L Alkaline Phosphatase 61 (46-116) U/L Troponin I (0.000-0.056) ng/mL C-Reactive Protein (0.0-0.9) mg/dL Total Protein 6.1 L (6.4-8.2) g/dL Albumin 3.6 (3.4-5.0) g/dL Globulin 2.5 Albumin/Globulin Ratio 1.4 Blood Type Med Orders - Current: Current Medications Acetaminophen (Tylenol) 650 mg PO Q4H PRN PRN Reason: Pain Last Admin: 06/16/20 09:46 Dose: 650 mg Documented by: Albuterol (Proventil Neb Soln) 2.5 mg NEB Q6HRRT PRN PRN Reason: Shortness of Breath Allopurinol (Zyloprim) 100 mg PO DAILY [facility] Last Admin: 06/16/20 08:14 Dose: 100 mg Documented by: Apixaban (Eliquis) 5 mg PO BID [facility] Last Admin: 06/16/20 09:47 Dose: 5 mg Documented by: Benzocaine/Menthol (Cepacol Sore Throat) 1 lozenge MUCMEM QID PRN PRN Reason: Cough Last Admin: 06/15/20 23:40 Dose: 1 lozenge Documented by: Cholecalciferol (Vitamin D3) 25 mcg PO BID [facility] Last Admin: 06/16/20 08:13 Dose: 25 mcg Documented by: Dexamethasone (Decadron) 6 mg IVPUSH DAILY [facility] Stop: 06/24/20 09:01 Last Admin: 06/16/20 08:14 Dose: 6 mg Documented by: Dextrose/Water (Dextrose 50% In Water) 25 ml IVPUSH ASDIRECTED PRN PRN Reason: Hypoglycemia Dextrose/Water (Dextrose 50% In Water) 50 ml IV ASDIRECTED PRN PRN Reason: Hypoglycemia Dextrose/Water (Dextrose 50% In Water) 50 ml IVPUSH ONETIME ONE Stop: 06/16/20 10:20 Dextrose/Water (Dextrose 50% In Water) 50 ml IV ASDIRECTED PRN PRN Reason: Hypoglycemia Famotidine (Pepcid) 20 mg PO BID [facility] Last Admin: 06/16/20 08:13 Dose: 20 mg Documented by: Glucagon (Glucagen) 1 mg IM ONETIME PRN PRN Reason: Hypoglycemia Glucagon (Glucagen) 1 mg IM ASDIRECTED PRN PRN Reason: Hypoglycemia Glucagon (Glucagen) 1 mg IM ASDIRECTED PRN PRN Reason: Hypoglycemia Remdesivir 100 mg/ Sodium (Chloride) 100 mls @ 100 mls/hr IV Q24H [facility] Stop: 06/19/20 21:59 Insulin Glargine (Lantus) 30 unit SUBCUT BEDTIME [facility] Insulin Human Lispro (Humalog) 0 unit SUBCUT WITHMEALSANDBED [facility]; Protocol Last Admin: 06/16/20 08:06 Dose: 8 unit Documented by: Insulin Human Regular (Humulin R) 10 unit IV ONETIME ONE Stop: 06/16/20 10:20 Lisinopril (Prinivil) 2.5 mg PO DAILY [facility] Last Admin: 06/16/20 08:13 Dose: 2.5 mg Documented by: Loperamide HCl (Imodium) 2 mg PO Q6H PRN PRN Reason: Diarrhea Magnesium Oxide (Magnesium Oxide) 500 mg PO BID [facility] Last Admin: 06/16/20 08:25 Dose: 500 mg Documented by: Metoprolol Tartrate (Lopressor) 25 mg PO Q12H [facility] Last Admin: 06/16/20 09:47 Dose: 25 mg Documented by: Mometasone Furoate/Formoterol Fumar (Dulera 100-5 Mcg) 2 puff IH BID [facility] Last Admin: 06/16/20 08:09 Dose: 2 puff Documented by: Ondansetron HCl (Zofran Odt) 4 mg PO Q6H PRN PRN Reason: nausea, able to take PO Ondansetron HCl (Zofran) 4 mg IVPUSH Q6H PRN PRN Reason: Nausea/Vomiting Oxcarbazepine (Trileptal) 450 mg PO TID [facility] Last Admin: 06/16/20 08:13 Dose: 450 mg Documented by: Senna/Docusate Sodium (Senna Plus) 1 tab PO BEDTIME PRN PRN Reason: Constipation Sodium Bicarbonate (Sodium Bicarbonate 4.2%) 5 meq IVPUSH ONETIME ONE Stop: 06/16/20 10:20 Sodium Polystyrene Sulfonate (Kayexalate) 15 gm PO Q6H [facility] Stop: 06/16/20 16:31 Discontinued Medications Benzocaine/Menthol (Cepacol Sore Throat) 1 lozenge MUCMEM ONETIME ONE Stop: 06/15/20 18:03 Last Admin: 06/15/20 18:09 Dose: 1 lozenge Documented by: Dexamethasone (Dexamethasone) 6 mg PO ONETIME ONE Stop: 06/15/20 18:51 Last Admin: 06/15/20 19:44 Dose: 6 mg Documented by: Diltiazem HCl (Cardizem) 30 mg PO Q6HR [facility] Diphenhydramine HCl (Benadryl) 25 mg IVPUSH ONETIME ONE Stop: 06/15/20 20:45 Last Admin: 06/16/20 05:16 Dose: 25 mg Documented by: Diphenhydramine HCl (Benadryl) Confirm Administered Dose 50 mg .ROUTE .STK-MED ONE Stop: 06/16/20 05:14 Last Admin: 06/16/20 05:29 Dose: Not Given Documented by: Remdesivir 200 mg/ Sodium (Chloride) 210 mls @ 210 mls/hr IV ONETIME ONE Stop: 06/15/20 20:47 Last Infusion: 06/16/20 05:03 Dose: Infused Documented by: Metoprolol Tartrate (Lopressor) 5 mg IVPUSH ONETIME ONE Stop: 06/16/20 09:39 Last Admin: 06/16/20 09:48 Dose: 5 mg Documented by: - Exam Quality Assessment: Supplemental Oxygen (2L via NC) General: Alert, Oriented, Cooperative HEENT: Pupils Equal, Pupils Reactive, Mucous Membr. Moist/[place] Neck: Supple, Trachea Midline Lungs: Rales Cardiovascular: Irregular Rhythm, Tachycardia GI/Abdominal Exam: Normal Bowel Sounds, Soft, Non-Tender, No Distention Extremities: Normal Inspection, Non-Tender, No Pedal Edema Peripheral Pulses: 2+: Radial (R), Dorsalis Pedis (L), Dorsalis Pedis (R) Skin: Warm, Dry, Intact Neurological: No New Focal Deficit Psy/Mental Status: Alert, Normal Affect, Normal Mood Sepsis Event Note - Evaluation Sepsis Screening Result: Sepsis Risk - Focused Exam Vital Signs: Vital Signs Temp Temp Pulse Pulse Resp BP BP 06/16/20 09:48 146 H 99/78 06/16/20 09:47 144 H 99/78 06/16/20 09:42 97.3 F 146 H 22 H 06/16/20 09:15 97.9 F 126 H 20 06/16/20 08:15 96.8 F L 144 H 20 06/16/20 08:13 102/78 06/16/20 08:00 96.9 F 110 H 18 06/16/20 07:57 96.9 F 122 H 20 06/16/20 07:45 96.9 F 122 H 20 06/16/20 07:38 96.9 F 122 H 20 06/16/20 06:43 97.6 F 125 H 20 06/16/20 05:54 96.9 F 127 H 20 06/16/20 05:39 96.6 F L 132 H 20 06/16/20 05:24 97.2 F 20 06/16/20 04:00 96.8 F L 124 H 20 06/15/20 23:43 97.3 F 129 H 22 H 109/71 BP Pulse Ox 06/16/20 09:48 06/16/20 09:47 06/16/20 09:42 99/76 94 L 06/16/20 09:15 117/69 94 L 06/16/20 08:15 134/81 94 L 06/16/20 08:13 06/16/20 08:00 102/78 95 06/16/20 07:57 104/68 06/16/20 07:45 121/72 95 06/16/20 07:38 104/68 96 06/16/20 06:43 105/73 93 L 06/16/20 05:54 93/66 95 06/16/20 05:39 122/61 94 L 06/16/20 05:24 98/74 95 06/16/20 04:00 112/93 H 95 06/15/20 23:43 96 - Problem List & Annotations (1) COPD (chronic obstructive pulmonary disease) SNOMED Code(s): 88575923 Code(s): J44.9 - CHRONIC OBSTRUCTIVE PULMONARY DISEASE, UNSPECIFIED Status: Acute Current Visit: Yes (2) CLL (chronic lymphocytic leukemia) SNOMED Code(s): 68215597 Code(s): C91.10 - CHRONIC LYMPHOCYTIC LEUK OF B-CELL TYPE NOT ACHIEVE REMIS Status: Acute Current Visit: Yes (3) Obesity SNOMED Code(s): 592279680, 391195587 Code(s): E66.9 - OBESITY, UNSPECIFIED Status: Acute Current Visit: Yes (4) Hyponatremia SNOMED Code(s): 95441675 Code(s): E87.1 - HYPO-OSMOLALITY AND HYPONATREMIA Status: Acute Current Visit: Yes (5) Atrial fibrillation by electrocardiogram SNOMED Code(s): 051757100 Code(s): I48.91 - UNSPECIFIED ATRIAL FIBRILLATION Status: Acute Current Visit: No (6) Pneumonia due to COVID-19 virus SNOMED Code(s): 086381279293558467 Code(s): U07.1 - COVID-19; J12.89 - OTHER VIRAL PNEUMONIA Status: Acute Current Visit: No (7) Hyperkalemia SNOMED Code(s): 53539307 Code(s): E87.5 - HYPERKALEMIA Status: Acute Current Visit: Yes (8) Atrial fibrillation with RVR SNOMED Code(s): 733303139330897 Code(s): I48.91 - UNSPECIFIED ATRIAL FIBRILLATION Status: Acute Current Visit: Yes - Problem List Review Problem List Initiated/Reviewed/Updated: Yes - My Orders Last 24 Hours: My Active Orders 06/15/20 Dinner Consistent Carbohydrate Diet [DIET] 06/15/20 20:21 Blood Glucose Check, Bedside [RC] QIDACANDBED Up ad Alejandrina [RC] ASDIRECTED Acetaminophen [TylenoL] 650 mg PO Q4H PRN Dextrose 50% in Water 25 ml IVPUSH ASDIRECTED PRN Dextrose 50% in Water 50 ml IV ASDIRECTED PRN Docusate Sodium/Sennosides [Senna Plus] 1 tab PO BEDTIME PRN Glucagon,Human Recombinant [GlucaGen] 1 mg IM ASDIRECTED PRN Glucagon,Human Recombinant [GlucaGen] 1 mg IM ONETIME PRN Ondansetron [Zofran ODT] 4 mg PO Q6H PRN Ondansetron [Zofran] 4 mg IVPUSH Q6H PRN Resuscitation Status Routine 06/15/20 20:22 Diabetes Education [RC] Click to Edit Notify Provider [RC] PRN Oxygen Therapy [RC] PRN VTE/DVT Education [RC] PER UNIT ROUTINE Vital Signs [RC] Q4H 06/15/20 20:44 Verify Patient Consent Obtain [RC] ASDIRECTED Transfuse Fresh Frozen Plasma [COMM] Routine 06/15/20 20:49 Albuterol [Proventil Neb Soln] 2.5 mg NEB Q6HRRT PRN Loperamide [Imodium] 2 mg PO Q6H PRN 06/15/20 20:50 RT Aerosol Therapy [RC] ASDIRECTED 06/15/20 21:00 Cholecalciferol (Vitamin D3) [Vitamin D3] 25 mcg PO BID Famotidine [Pepcid] 20 mg PO BID Insulin Lispro [HumaLOG] See Protocol SUBCUT WITHMEALSANDBED Magnesium Oxide 500 mg PO BID Mometasone/Formoterol [Dulera 100-5 MCG] 2 puff IH BID OXcarbazepine [Trileptal] 450 mg PO TID 06/15/20 23:00 Benzocaine/Cetylpyrd/Menthol [Cepacol Sore Throat] 1 lozenge MUCMEM QID PRN 06/16/20 09:00 Apixaban [Eliquis] 5 mg PO BID Metoprolol Tartrate [Lopressor] 25 mg PO Q12H allopurinoL [Zyloprim] 100 mg PO DAILY dexAMETHasone [Decadron] 6 mg IVPUSH DAILY lisinopriL [Prinivil] 2.5 mg PO DAILY 06/16/20 10:19 Dextrose 50% in Water 50 ml IV ASDIRECTED PRN Dextrose 50% in Water 50 ml IVPUSH ONETIME ONE Glucagon,Human Recombinant [GlucaGen] 1 mg IM ASDIRECTED PRN Insulin Regular, Human [HumuLIN R] 10 unit IV ONETIME ONE Sodium Bicarbonate [Sodium Bicarbonate 4.2%] 5 meq IVPUSH ONETIME ONE 06/16/20 10:30 Sodium Polystyrene Sulfonate [Kayexalate] 15 gm PO Q6H 06/16/20 21:00 Insulin Glarg,Human.Rec.Analog [LantUS] 30 unit SUBCUT BEDTIME Remdesivir 100 mg Sodium Chloride 0.9% [Normal Saline] 100 ml IV Q24H 06/17/20 05:11 D-DIMER QUANTITATIVE [COAG] DAILY 06/17/20 21:00 HEPATIC FUNCTION PANEL,HFP [CHEM] DAILY 06/18/20 05:11 D-DIMER QUANTITATIVE [COAG] DAILY 06/18/20 21:00 HEPATIC FUNCTION PANEL,HFP [CHEM] DAILY 06/19/20 05:11 D-DIMER QUANTITATIVE [COAG] DAILY 06/19/20 21:00 HEPATIC FUNCTION PANEL,HFP [CHEM] DAILY - Plan Plan:: COVID-19 pneumonia: Patient presented with shortness of breath. Chest x-ray showing bilateral groundglass opacities concerning for pneumonia. Patient desaturated to 89% on room air during time of my assessment. Telemetry Supplemental oxygen, titrate to SPO2 of 88 to 92% Incentive spirometer Decadron Remdesivir Convalescent plasma One time dose of lasix Patient understands that convalescent plasma and remdesivir investigational therapies and that risks and benefits of treatment are not supported by extensive studies. He agrees to receiving both therapies. #New onset A. fib: Now with RVR. HR in 130s to 150s. Likely due to respiratory illness from COVID-19 versus COPD. However, COPD seems to be well controlled. Telemetry monitoring [id number] score is 2 for age and history of diabetes. Needs lifetime anticoagulation. Start Eliquis Start Lopressor #Hyperkalemia: K of 5.5 Kayexalate, insulin with D50, calcium gluconate, and sodium bicarb. Holding neb albuterol due to COVID-19 infection #Diabetes mellitus Hold oral diabetes medications Lantus 30 units at bedtime Cover with sliding scale insulin and hypoglycemia protocol #Hypertension Continue lisinopril #Obesity Weight loss counseling DVT prophylaxis: Eliquis GI prophylaxis: Diabetic diet CODE STATUS: Full code per patient preference
[2020-06-16] MEDS ORDERED: Insulin Regular, Human 100 Units/ML 3 ML Vial IV ONE ×3 (11:00→18:11)
[2020-06-16] MEDS ORDERED: Furosemide 40 MG/4 ML VIAL IVPUSH ONE (11:00)
[2020-06-16] MEDS ORDERED: Sodium Bicarbonate 4.2% 2.5 MEQ/5 ML SDV IVPUSH ONE (11:00)
[2020-06-16] MEDS ORDERED: Diltiazem 125 MG in Sodium Chloride 0.9% 100 ML IV SCH ×2 (11:15→22:45)
[2020-06-16] MEDS: Sodium Polystyrene Sulfonate 15 GM/60 ML Susp 60 ML Bot PO SCH ×2 (11:19→18:07)
[2020-06-16 14:18] LABS: ANION GAP 12.7 mEq/L (7-13)
[2020-06-16] MEDS: REMDESIVIR 100 MG in Sodium Chloride 0.9% 100 ML IV SCH (20:45)
[2020-06-16] MEDS ORDERED: Insulin Glarg,Human.Rec.Analog 100 Unit/ML SUBCUT SCH (21:00)
[2020-06-16 23:45] LABS: ANION GAP 12.5 mEq/L (7-13)
[2020-06-17] MEDS: Cholecalciferol (Vitamin D3) 25 MCG Tab PO SCH ×2 (09:02→21:50)
[2020-06-17] MEDS: Apixaban 5 MG Tab PO SCH ×2 (09:02→21:48)
[2020-06-17] MEDS: Allopurinol 100 MG Tab PO SCH (09:02)
[2020-06-17] MEDS: OXcarbazepine 300 MG Tab PO SCH ×4 (09:02→21:50)
[2020-06-17] MEDS: Famotidine 20 MG Tab PO SCH ×2 (09:02→21:50)
[2020-06-17] MEDS: Lisinopril 5 MG Tab PO SCH (09:02)
[2020-06-17] MEDS: Formoterol/Mometasone 100-5 MCG 8.8 GM Inhaler IH SCH ×2 (09:03→21:51)
[2020-06-17] MEDS: Dexamethasone 4 MG/ML SDV IVPUSH SCH (09:03)
[2020-06-17 11:24] LABS: ANION GAP 12.3 mEq/L (7-13); CHLORIDE,CL 102 mmol/L (98-107); SODIUM,NA 138 mmol/L (136-145)
--- NOTE | 2020-06-17 11:56 | PCM.PN ---
- General Info Date of Service: 06/17/20 Admission Dx/Problem (Free Text): Admission Diagnosis/Problem Admission Diagnosis/Problem Atrial fibrillation by electrocardiogram Subjective Update: Patient continues to have O2 requirement. HR improved on cardizem drip. BG i mproved on insulin drip. Denies fevers, chills, chest pain, shortness of breath, n/v/d/c, dysuria, or any new symptoms. - Patient Data Vitals - Most Recent: Last Vital Signs Temp 97 F 06/17/20 08:59 Pulse 91 06/17/20 08:59 Resp 20 06/17/20 08:59 BP 122/82 06/17/20 09:02 Pulse Ox 92 L 06/17/20 08:59 Weight - Most Recent: 233 lb 3.2 oz I&O - Last 24 Hours: Intake & Output 06/16/20 06/17/20 06/17/20 22:59 06:59 14:59 Intake Total 681 710 Output Total 800 Balance 681 -90 Lab Results Last 24 Hours: Laboratory Results - last 24 hr 06/16/20 06/16/20 06/16/20 Range/Units 12:02 13:56 14:52 WBC (5.0-10.0) 10^3/uL RBC (4.6-6.2) 10^6/uL Hgb (14.0-18.0) g/dL Hct (40.0-54.0) % MCV (80-100) fL MCH (27.0-34.0) pg MCHC (33.0-35.0) g/dL Plt Count (150-450) 10^3/uL D-Dimer, Quantitative (0-400) ng/mL Sodium 133 L (136-145) mmol/L Potassium 4.7 (3.5-5.1) mmol/L Chloride 98 (98-107) mmol/L Carbon Dioxide 27 (21-32) mmol/L Anion Gap 12.7 (7-13) mEq/L BUN 34 H (7-18) mg/dL Creatinine 1.26 (0.70-1.30) mg/dL Est Cr Clr Drug Dosing 62.25 mL/min Estimated GFR (MDRD) 57 Glucose 415 H* (74-99) mg/dL POC Glucose 389 H 479 H* (70-105) mg/dl Calcium 8.5 (8.5-10.1) mg/dL Phosphorus (2.6-4.7) mg/dL Magnesium (1.8-2.4) mg/dL Total Bilirubin (0.2-1.0) mg/dL Direct Bilirubin (0.0-0.2) mg/dL Indirect Bilirubin AST (15-37) U/L ALT (16-63) U/L Alkaline Phosphatase (46-116) U/L C-Reactive Protein (0.0-0.9) mg/dL Total Protein (6.4-8.2) g/dL Albumin (3.4-5.0) g/dL Globulin Albumin/Globulin Ratio 06/16/20 06/16/20 06/16/20 Range/Units 16:12 17:10 19:37 WBC (5.0-10.0) 10^3/uL RBC (4.6-6.2) 10^6/uL Hgb (14.0-18.0) g/dL Hct (40.0-54.0) % MCV (80-100) fL MCH (27.0-34.0) pg MCHC (33.0-35.0) g/dL Plt Count (150-450) 10^3/uL D-Dimer, Quantitative (0-400) ng/mL Sodium (136-145) mmol/L Potassium (3.5-5.1) mmol/L Chloride (98-107) mmol/L Carbon Dioxide (21-32) mmol/L Anion Gap (7-13) mEq/L BUN (7-18) mg/dL Creatinine (0.70-1.30) mg/dL Est Cr Clr Drug Dosing mL/min Estimated GFR (MDRD) Glucose (74-99) mg/dL POC Glucose 406 H* 400 H 314 H (70-105) mg/dl Calcium (8.5-10.1) mg/dL Phosphorus (2.6-4.7) mg/dL Magnesium (1.8-2.4) mg/dL Total Bilirubin (0.2-1.0) mg/dL Direct Bilirubin (0.0-0.2) mg/dL Indirect Bilirubin AST (15-37) U/L ALT (16-63) U/L Alkaline Phosphatase (46-116) U/L C-Reactive Protein (0.0-0.9) mg/dL Total Protein (6.4-8.2) g/dL Albumin (3.4-5.0) g/dL Globulin Albumin/Globulin Ratio 06/16/20 06/16/20 06/16/20 Range/Units 21:29 23:12 23:34 WBC (5.0-10.0) 10^3/uL RBC (4.6-6.2) 10^6/uL Hgb (14.0-18.0) g/dL Hct (40.0-54.0) % MCV (80-100) fL MCH (27.0-34.0) pg MCHC (33.0-35.0) g/dL Plt Count (150-450) 10^3/uL D-Dimer, Quantitative (0-400) ng/mL Sodium 134 L (136-145) mmol/L Potassium 4.5 (3.5-5.1) mmol/L Chloride 99 (98-107) mmol/L Carbon Dioxide 27 (21-32) mmol/L Anion Gap 12.5 (7-13) mEq/L BUN 38 H (7-18) mg/dL Creatinine 1.29 (0.70-1.30) mg/dL Est Cr Clr Drug Dosing 60.80 mL/min Estimated GFR (MDRD) 56 Glucose 466 H* (74-99) mg/dL POC Glucose 486 H* 437 H* (70-105) mg/dl Calcium 8.5 (8.5-10.1) mg/dL Phosphorus (2.6-4.7) mg/dL Magnesium (1.8-2.4) mg/dL Total Bilirubin (0.2-1.0) mg/dL Direct Bilirubin (0.0-0.2) mg/dL Indirect Bilirubin AST (15-37) U/L ALT (16-63) U/L Alkaline Phosphatase (46-116) U/L C-Reactive Protein (0.0-0.9) mg/dL Total Protein (6.4-8.2) g/dL Albumin (3.4-5.0) g/dL Globulin Albumin/Globulin Ratio 06/17/20 06/17/20 06/17/20 Range/Units 01:10 02:56 04:05 WBC (5.0-10.0) 10^3/uL RBC (4.6-6.2) 10^6/uL Hgb (14.0-18.0) g/dL Hct (40.0-54.0) % MCV (80-100) fL MCH (27.0-34.0) pg MCHC (33.0-35.0) g/dL Plt Count (150-450) 10^3/uL D-Dimer, Quantitative (0-400) ng/mL Sodium (136-145) mmol/L Potassium (3.5-5.1) mmol/L Chloride (98-107) mmol/L Carbon Dioxide (21-32) mmol/L Anion Gap (7-13) mEq/L BUN (7-18) mg/dL Creatinine (0.70-1.30) mg/dL Est Cr Clr Drug Dosing mL/min Estimated GFR (MDRD) Glucose 355 H (74-99) mg/dL POC Glucose 268 H 219 H (70-105) mg/dl Calcium (8.5-10.1) mg/dL Phosphorus (2.6-4.7) mg/dL Magnesium (1.8-2.4) mg/dL Total Bilirubin (0.2-1.0) mg/dL Direct Bilirubin (0.0-0.2) mg/dL Indirect Bilirubin AST (15-37) U/L ALT (16-63) U/L Alkaline Phosphatase (46-116) U/L C-Reactive Protein (0.0-0.9) mg/dL Total Protein (6.4-8.2) g/dL Albumin (3.4-5.0) g/dL Globulin Albumin/Globulin Ratio 06/17/20 06/17/20 06/17/20 Range/Units 05:13 06:39 08:58 WBC (5.0-10.0) 10^3/uL RBC (4.6-6.2) 10^6/uL Hgb (14.0-18.0) g/dL Hct (40.0-54.0) % MCV (80-100) fL MCH (27.0-34.0) pg MCHC (33.0-35.0) g/dL Plt Count (150-450) 10^3/uL D-Dimer, Quantitative (0-400) ng/mL Sodium (136-145) mmol/L Potassium (3.5-5.1) mmol/L Chloride (98-107) mmol/L Carbon Dioxide (21-32) mmol/L Anion Gap (7-13) mEq/L BUN (7-18) mg/dL Creatinine (0.70-1.30) mg/dL Est Cr Clr Drug Dosing mL/min Estimated GFR (MDRD) Glucose (74-99) mg/dL POC Glucose 141 H 102 151 H (70-105) mg/dl Calcium (8.5-10.1) mg/dL Phosphorus (2.6-4.7) mg/dL Magnesium (1.8-2.4) mg/dL Total Bilirubin (0.2-1.0) mg/dL Direct Bilirubin (0.0-0.2) mg/dL Indirect Bilirubin AST (15-37) U/L ALT (16-63) U/L Alkaline Phosphatase (46-116) U/L C-Reactive Protein (0.0-0.9) mg/dL Total Protein (6.4-8.2) g/dL Albumin (3.4-5.0) g/dL Globulin Albumin/Globulin Ratio 06/17/20 06/17/20 06/17/20 Range/Units 10:50 10:50 10:50 WBC (5.0-10.0) 10^3/uL RBC (4.6-6.2) 10^6/uL Hgb (14.0-18.0) g/dL Hct (40.0-54.0) % MCV (80-100) fL MCH (27.0-34.0) pg MCHC (33.0-35.0) g/dL Plt Count (150-450) 10^3/uL D-Dimer, Quantitative 130 (0-400) ng/mL Sodium (136-145) mmol/L Potassium (3.5-5.1) mmol/L Chloride (98-107) mmol/L Carbon Dioxide (21-32) mmol/L Anion Gap (7-13) mEq/L BUN (7-18) mg/dL Creatinine (0.70-1.30) mg/dL Est Cr Clr Drug Dosing mL/min Estimated GFR (MDRD) Glucose (74-99) mg/dL POC Glucose (70-105) mg/dl Calcium (8.5-10.1) mg/dL Phosphorus (2.6-4.7) mg/dL Magnesium (1.8-2.4) mg/dL Total Bilirubin 0.4 (0.2-1.0) mg/dL Direct Bilirubin 0.2 (0.0-0.2) mg/dL Indirect Bilirubin 0.2 AST 24 (15-37) U/L ALT 37 (16-63) U/L Alkaline Phosphatase 55 (46-116) U/L C-Reactive Protein 2.0 H (0.0-0.9) mg/dL Total Protein 6.3 L (6.4-8.2) g/dL Albumin 3.3 L (3.4-5.0) g/dL Globulin 3.0 Albumin/Globulin Ratio 1.10 06/17/20 06/17/20 Range/Units 10:50 10:50 WBC 9.8 (5.0-10.0) 10^3/uL RBC 5.27 (4.6-6.2) 10^6/uL Hgb 15.4 (14.0-18.0) g/dL Hct 45.6 (40.0-54.0) % MCV 86.5 (80-100) fL MCH 29.2 (27.0-34.0) pg MCHC 33.8 (33.0-35.0) g/dL Plt Count 165 (150-450) 10^3/uL D-Dimer, Quantitative (0-400) ng/mL Sodium 138 (136-145) mmol/L Potassium 4.3 (3.5-5.1) mmol/L Chloride 102 (98-107) mmol/L Carbon Dioxide 28 (21-32) mmol/L Anion Gap 12.3 (7-13) mEq/L BUN 27 H (7-18) mg/dL Creatinine 1.02 (0.70-1.30) mg/dL Est Cr Clr Drug Dosing 76.90 mL/min Estimated GFR (MDRD) > 60 Glucose 213 H (74-99) mg/dL POC Glucose (70-105) mg/dl Calcium 8.5 (8.5-10.1) mg/dL Phosphorus 3.1 (2.6-4.7) mg/dL Magnesium 1.9 (1.8-2.4) mg/dL Total Bilirubin (0.2-1.0) mg/dL Direct Bilirubin (0.0-0.2) mg/dL Indirect Bilirubin AST (15-37) U/L ALT (16-63) U/L Alkaline Phosphatase (46-116) U/L C-Reactive Protein (0.0-0.9) mg/dL Total Protein (6.4-8.2) g/dL Albumin (3.4-5.0) g/dL Globulin Albumin/Globulin Ratio Med Orders - Current: Current Medications Acetaminophen (Tylenol) 650 mg PO Q4H PRN PRN Reason: Pain Last Admin: 06/16/20 21:36 Dose: 650 mg Documented by: Albuterol (Proventil Neb Soln) 2.5 mg NEB Q6HRRT PRN PRN Reason: Shortness of Breath Allopurinol (Zyloprim) 100 mg PO DAILY [facility] Last Admin: 06/17/20 09:02 Dose: 100 mg Documented by: Apixaban (Eliquis) 5 mg PO BID [facility] Last Admin: 06/17/20 09:02 Dose: 5 mg Documented by: Benzocaine/Menthol (Cepacol Sore Throat) 1 lozenge [facility] QID PRN PRN Reason: Cough Last Admin: 06/15/20 23:40 Dose: 1 lozenge Documented by: Cholecalciferol (Vitamin D3) 25 mcg PO BID [facility] Last Admin: 06/17/20 09:02 Dose: 25 mcg Documented by: Dexamethasone (Decadron) 6 mg IVPUSH DAILY [facility] Stop: 06/24/20 09:01 Last Admin: 06/17/20 09:03 Dose: 6 mg Documented by: Dextrose/Water (Dextrose 50% In Water) 25 ml IVPUSH ASDIRECTED PRN PRN Reason: Hypoglycemia Dextrose/Water (Dextrose 50% In Water) 50 ml IV ASDIRECTED PRN PRN Reason: Hypoglycemia Diltiazem HCl (Cardizem) 60 mg PO Q6HR [facility] Famotidine (Pepcid) 20 mg PO BID [facility] Last Admin: 06/17/20 09:02 Dose: 20 mg Documented by: Glucagon (Glucagen) 1 mg IM ASDIRECTED PRN PRN Reason: Hypoglycemia Remdesivir 100 mg/ Sodium (Chloride) 100 mls @ 100 mls/hr IV Q24H [facility] Stop: 06/19/20 21:59 Last Admin: 06/16/20 20:45 Dose: 100 mls/hr Documented by: Diltiazem HCl 125 mg/ Sodium (Chloride) 125 mls @ 5 mls/hr IV TITRATE [facility]; Protocol Insulin Glargine (Lantus) 40 unit SUBCUT BEDTIME [facility] Insulin Human Lispro (Humalog) 0 unit SUBCUT WITHMEALSANDBED [facility]; Protocol Last Admin: 06/16/20 22:40 Dose: Not Given Documented by: Insulin Human Lispro (Humalog) 15 unit SUBCUT TIDMEALS [facility] Lisinopril (Prinivil) 2.5 mg PO DAILY [facility] Last Admin: 06/17/20 09:02 Dose: 2.5 mg Documented by: Loperamide HCl (Imodium) 2 mg PO Q6H PRN PRN Reason: Diarrhea Magnesium Oxide (Magnesium Oxide) 500 mg PO BID [facility] Last Admin: 06/17/20 09:02 Dose: 500 mg Documented by: Mometasone Furoate/Formoterol Fumar (Dulera 100-5 Mcg) 2 puff IH BID [facility] Last Admin: 06/17/20 09:03 Dose: 2 puff Documented by: Ondansetron HCl (Zofran Odt) 4 mg PO Q6H PRN PRN Reason: nausea, able to take PO Ondansetron HCl (Zofran) 4 mg IVPUSH Q6H PRN PRN Reason: Nausea/Vomiting Oxcarbazepine (Trileptal) 450 mg PO TID [facility] Last Admin: 06/17/20 09:02 Dose: 450 mg Documented by: Senna/Docusate Sodium (Senna Plus) 1 tab PO BEDTIME PRN PRN Reason: Constipation Discontinued Medications Benzocaine/Menthol (Cepacol Sore Throat) 1 lozenge [facility] ONETIME ONE Stop: 06/15/20 18:03 Last Admin: 06/15/20 18:09 Dose: 1 lozenge Documented by: Dexamethasone (Dexamethasone) 6 mg PO ONETIME ONE Stop: 06/15/20 18:51 Last Admin: 06/15/20 19:44 Dose: 6 mg Documented by: Dextrose/Water (Dextrose 50% In Water) 25 ml IVPUSH ONETIME ONE Stop: 06/16/20 11:01 Last Admin: 06/16/20 11:15 Dose: 25 ml Documented by: Diltiazem HCl (Cardizem) 30 mg PO Q6HR [facility] Diltiazem HCl (Cardizem) 30 mg PO Q6HR [facility] Last Admin: 06/16/20 18:28 Dose: 30 mg Documented by: Diphenhydramine HCl (Benadryl) 25 mg IVPUSH ONETIME ONE Stop: 06/15/20 20:45 Last Admin: 06/16/20 05:16 Dose: 25 mg Documented by: Diphenhydramine HCl (Benadryl) Confirm Administered Dose 50 mg .ROUTE .STK-MED ONE Stop: 06/16/20 05:14 Last Admin: 06/16/20 05:29 Dose: Not Given Documented by: Furosemide (Lasix) 40 mg IVPUSH NOW ONE Stop: 06/16/20 11:01 Last Admin: 06/16/20 11:19 Dose: 40 mg Documented by: Remdesivir 200 mg/ Sodium (Chloride) 210 mls @ 210 mls/hr IV ONETIME ONE Stop: 06/15/20 20:47 Last Infusion: 06/16/20 05:03 Dose: Infused Documented by: Diltiazem HCl 125 mg/ Sodium (Chloride) 125 mls @ 5 mls/hr IV TITRATE [facility]; Protocol Last Titration: 06/16/20 23:40 Dose: 5 mg/hr, 5 mls/hr Documented by: Insulin Regular in 0.9 % NACL (Myxredlin 100 Unit/100 Ml) 100 unit in 100 mls @ 10.578 mls/hr IV TITRATE [facility]; Protocol Last Titration: 06/17/20 05:35 Dose: 0 units/kg/hr, 0 mls/hr Documented by: Insulin Glargine (Lantus) 30 unit SUBCUT BEDTIME [facility] Last Admin: 06/16/20 21:43 Dose: 30 unit Documented by: Insulin Human Regular (Humulin R) 10 unit IV ONETIME ONE Stop: 06/16/20 11:01 Last Admin: 06/16/20 11:18 Dose: 10 units Documented by: Insulin Human Regular (Humulin R) 10 unit IV ONETIME ONE Stop: 06/16/20 14:24 Last Admin: 12/04/20 14:53 Dose: 10 units Documented by: Insulin Human Regular (Humulin R) 10 unit IV ONETIME ONE Stop: 06/16/20 18:12 Last Admin: 06/16/20 18:28 Dose: 10 units Documented by: Metoprolol Tartrate (Lopressor) 25 mg PO Q12H [facility] Last Admin: 06/16/20 09:47 Dose: 25 mg Documented by: Metoprolol Tartrate (Lopressor) 5 mg IVPUSH ONETIME ONE Stop: 06/16/20 09:39 Last Admin: 06/16/20 09:48 Dose: 5 mg Documented by: Sodium Bicarbonate (Sodium Bicarbonate 4.2%) 5 meq IVPUSH ONETIME ONE Stop: 06/16/20 11:01 Last Admin: 06/16/20 11:16 Dose: 5 meq Documented by: Sodium Polystyrene Sulfonate (Kayexalate) 15 gm PO Q6H [facility] Stop: 06/16/20 16:31 Last Admin: 06/16/20 18:07 Dose: Not Given Documented by: - Exam Quality Assessment: Supplemental Oxygen General: Alert, Oriented, Cooperative, No Acute Distress HEENT: Pupils Equal, Pupils Reactive, EOMI Neck: Supple Lungs: Normal Respiratory Effort, Crackles Cardiovascular: Regular Rate, Irregular Rhythm GI/Abdominal Exam: Normal Bowel Sounds, Soft, Non-Tender, No Distention Extremities: Normal Inspection, Non-Tender, No Pedal Edema Peripheral Pulses: 2+: Radial (R), Dorsalis Pedis (L), Dorsalis Pedis (R) Skin: Warm, Dry, Intact Neurological: No New Focal Deficit Psy/Mental Status: Alert, Normal Affect, Normal Mood Sepsis Event Note - Evaluation Sepsis Screening Result: No Definite Risk - Focused Exam Vital Signs: Vital Signs Temp Pulse Pulse Pulse Resp BP BP 06/17/20 09:02 122/82 06/17/20 08:59 97 F 84 91 20 122/82 06/17/20 06:45 79 15 107/60 06/17/20 05:16 97.3 F 79 20 118/82 06/17/20 04:30 81 16 109/64 06/17/20 03:15 78 20 113/75 06/17/20 03:00 97.8 F 06/17/20 02:47 80 20 114/71 06/17/20 02:20 77 22 H 112/72 06/17/20 01:31 94 22 H 116/71 06/17/20 00:50 78 18 107/55 L Pulse Ox 06/17/20 09:02 06/17/20 08:59 92 L 06/17/20 06:45 96 06/17/20 05:16 90 L 06/17/20 04:30 95 06/17/20 03:15 92 L 06/17/20 03:00 06/17/20 02:47 92 L 06/17/20 02:20 91 L 06/17/20 01:31 92 L 06/17/20 00:50 94 L - Problem List & Annotations (1) COPD (chronic obstructive pulmonary disease) SNOMED Code(s): 79701955 Code(s): J44.9 - CHRONIC OBSTRUCTIVE PULMONARY DISEASE, UNSPECIFIED Status: Acute Current Visit: Yes (2) CLL (chronic lymphocytic leukemia) SNOMED Code(s): 76297203 Code(s): C91.10 - CHRONIC LYMPHOCYTIC LEUK OF B-CELL TYPE NOT ACHIEVE REMIS Status: Acute Current Visit: Yes (3) Obesity SNOMED Code(s): 583784402, 675302328 Code(s): E66.9 - OBESITY, UNSPECIFIED Status: Acute Current Visit: Yes (4) Hyponatremia SNOMED Code(s): 56370236 Code(s): E87.1 - HYPO-OSMOLALITY AND HYPONATREMIA Status: Acute Current Visit: Yes (5) Atrial fibrillation by electrocardiogram SNOMED Code(s): 081303766 Code(s): I48.91 - UNSPECIFIED ATRIAL FIBRILLATION Status: Acute Current Visit: No (6) Pneumonia due to COVID-19 virus SNOMED Code(s): 002730418833600970 Code(s): U07.1 - COVID-19; J12.89 - OTHER VIRAL PNEUMONIA Status: Acute Current Visit: No (7) Hyperkalemia SNOMED Code(s): 21982571 Code(s): E87.5 - HYPERKALEMIA Status: Acute Current Visit: Yes (8) Atrial fibrillation with RVR SNOMED Code(s): 965766642467493 Code(s): I48.91 - UNSPECIFIED ATRIAL FIBRILLATION Status: Acute Current Visit: Yes (9) Hyperglycemia SNOMED Code(s): 17322699 Code(s): R73.9 - HYPERGLYCEMIA, UNSPECIFIED Status: Acute Current Visit: Yes (10) Hyperglycemia, drug-induced SNOMED Code(s): 812934216 Code(s): R73.9 - HYPERGLYCEMIA, UNSPECIFIED; T50.905A - ADVERSE EFFECT OF UNSP DRUG/MEDS/BIOL SUBST, INIT Status: Acute Current Visit: Yes - Problem List Review Problem List Initiated/Reviewed/Updated: Yes - My Orders Last 24 Hours: My Active Orders 06/16/20 21:00 Remdesivir 100 mg Sodium Chloride 0.9% [Normal Saline] 100 ml IV Q24H 06/16/20 22:45 Diltiazem 125 mg Sodium Chloride 0.9% [Normal Saline] 100 ml IV TITRATE 06/17/20 00:06 Communication Order [RC] ROUTINE 06/17/20 Lunch Consistent Carbohydrate Diet [DIET] Diltiazem IR [Cardizem] 60 mg PO Q6HR Insulin Lispro [HumaLOG] 15 unit SUBCUT TIDMEALS 06/17/20 21:00 Insulin Glarg,Human.Rec.Analog [LantUS] 40 unit SUBCUT BEDTIME 06/18/20 05:11 D-DIMER QUANTITATIVE [COAG] DAILY 06/18/20 10:46 CRP [C-REACTIVE PROTEIN] [CHEM] DAILY 06/18/20 11:00 BASIC METABOLIC PANEL,BMP [CHEM] DAILY CBC W/O DIFF,HEMOGRAM [HEME] DAILY FERRITIN [CHEM] DAILY MAGNESIUM [CHEM] DAILY PHOSPHORUS [CHEM] DAILY 06/18/20 21:00 HEPATIC FUNCTION PANEL,HFP [CHEM] DAILY 06/19/20 05:11 D-DIMER QUANTITATIVE [COAG] DAILY 06/19/20 10:46 CRP [C-REACTIVE PROTEIN] [CHEM] DAILY 06/19/20 11:00 BASIC METABOLIC PANEL,BMP [CHEM] DAILY CBC W/O DIFF,HEMOGRAM [HEME] DAILY FERRITIN [CHEM] DAILY MAGNESIUM [CHEM] DAILY PHOSPHORUS [CHEM] DAILY 06/19/20 21:00 HEPATIC FUNCTION PANEL,HFP [CHEM] DAILY - Plan Plan:: COVID-19 pneumonia: Patient presented with shortness of breath. Chest x-ray showing bilateral groundglass opacities concerning for pneumonia. Patient desaturated to 89% on room air during time of my assessment. Telemetry Supplemental oxygen, titrate to SPO2 of 88 to 92% Incentive spirometer Decadron Remdesivir Recived 2 units of convalescent plasma One time dose of lasix Patient understands that convalescent plasma and remdesivir investigational therapies and that risks and benefits of treatment are not supported by extensive studies. He agrees to receiving both therapies. #New onset A. fib: Now with RVR. HR in 130s to 150s. Likely due to respiratory illness from COVID-19 versus COPD. However, COPD seems to be well controlled. Telemetry monitoring [id number] score is 2 for age and history of diabetes. Needs lifetime anticoagulation. Continue Eliquis Continue Cardizem, 60 mg PO q6h Cardizem drip prn to keep HR <110. #Hyperkalemia: K of 5.5; Resolved. Received Kayexalate, insulin with D50, calcium gluconate, and sodium bicarb. Did not receive neb albuterol due to COVID-19 infection Monitor electrolytes #Diabetes mellitus; with hyperglycemia due to steroids. Improved with insulin drip Hold oral diabetes medications 15 units of humalog wtih meals Lantus 40 units at bedtime Cover with sliding scale insulin and hypoglycemia protocol #Hypertension Continue lisinopril #Obesity Weight loss counseling DVT prophylaxis: Eliquis GI prophylaxis: Diabetic diet CODE STATUS: Full code per patient preference
[2020-06-17] MEDS: Diltiazem IR 30 MG Tab PO SCH ×2 (12:18→17:31)
[2020-06-17] MEDS: Insulin Lispro 100 Units/ML 3 ML Vial SUBCUT SCH ×5 (12:19→22:00)
[2020-06-17] MEDS ORDERED: Loperamide 2 MG Cap PO PRN (15:26)
[2020-06-17] MEDS ORDERED: Insulin Glarg,Human.Rec.Analog 100 Unit/ML SUBCUT SCH (21:00)
[2020-06-17] MEDS: REMDESIVIR 100 MG in Sodium Chloride 0.9% 100 ML IV SCH (22:20)
[2020-06-18] MEDS: Diltiazem IR 30 MG Tab PO SCH ×3 (00:07→12:06)
[2020-06-18 06:58] LABS: ANION GAP 13.3 mEq/L (7-13); CHLORIDE,CL 102 mmol/L (98-107); SODIUM,NA 140 mmol/L (136-145)
[2020-06-18 08:16] VITALS: BP 152/87; PULSE 76
[2020-06-18] MEDS: Dexamethasone 4 MG/ML SDV IVPUSH SCH (08:17)
[2020-06-18] MEDS: Cholecalciferol (Vitamin D3) 25 MCG Tab PO SCH (08:18)
[2020-06-18] MEDS: Apixaban 5 MG Tab PO SCH (08:18)
[2020-06-18] MEDS: Famotidine 20 MG Tab PO SCH (08:18)
[2020-06-18] MEDS: Lisinopril 5 MG Tab PO SCH (08:18)
[2020-06-18] MEDS: Formoterol/Mometasone 100-5 MCG 8.8 GM Inhaler IH SCH (08:19)
[2020-06-18] MEDS: Insulin Lispro 100 Units/ML 3 ML Vial SUBCUT SCH ×4 (08:22→12:12)
[2020-06-18] MEDS: OXcarbazepine 300 MG Tab PO SCH (08:33)
--- NOTE | 2020-06-18 11:13 | PCM.DCSUM1 ---
Discharge Summary - Hospital Course Free Text/Narrative:: Mr. Stafford is a 65-year-old male with medical history significant for diabetes, COPD, CLL on ibrutinib, and past medical history of tobacco use who quit in 2004 who was brought to the ED by law enforcement for shortness of breath. Patient reports that he was tested for COVID-19 as part of mass testing on 06/09/2020. Was in Afib on presentation. Went into RVR overnight and was started on cardizem drip. Convalescent plasma and remdesivir. He was started on oral Cardizem at 30 mg every 6 hours but heart rate remained elevated. Cardizem dose was increased to 60 mg every 6 hours. Heart rate eventually improved. Patient developed hypoglycemia during hospitalization, likely due to steroids. He required insulin drip to bring blood glucose back to normal. Patient was weaned off oxygen and was saturating well on room air. He is being discharged to continue Decadron, cardizem, and eliquis. He is to hold Imbruvica until instructed by PCP. Per CDC guidelines, due to patient being immunocompromised, he would need to self isolate for total of 20 days.Was needing the O2 the following morning. Received 2 units of HPI Initial Comments: Mr. Stafford is a 65-year-old male with medical history significant for diabetes, COPD, CLL on ibrutinib, and past medical history of tobacco use who quit in 2004 who was brought to the ED by law enforcement for shortness of breath. Patient reports that he was tested for COVID-19 as part of mass testing on 06/09/2020. Reports that his test came back positive on 06/12/2020. States that he started having shortness of breath yesterday. States that he is short of breath at rest and not worsens with activity. Reports that he has chronic cough which is unchanged from baseline. Denies any fevers, chills, nausea, vomiting, diarrhea, constipation, dysuria, hematuria, change in taste or smell, hemoptysis, melena, hematochezia, or any other symptoms. In the ED, chest x-ray showed bilateral pulmonary infiltrates his D-dimer was not elevated at 430. Sodium was borderline low at 134. Patient was saturating well on room air but was placed on oxygen for comfort. Diagnosis: Stroke: No - Discharge Data Discharge Date: 06/18/20 Discharge Disposition: Home, Self-Care 01 Condition: Stable - Referral to Home Health Primary Care Physician: Emily Jackson NP - Discharge Diagnosis/Problem(s) (1) COPD (chronic obstructive pulmonary disease) SNOMED Code(s): 14164106 ICD Code: J44.9 - CHRONIC OBSTRUCTIVE PULMONARY DISEASE, UNSPECIFIED Status: Acute Current Visit: Yes (2) CLL (chronic lymphocytic leukemia) SNOMED Code(s): 13450428 ICD Code: C91.10 - CHRONIC LYMPHOCYTIC LEUK OF B-CELL TYPE NOT ACHIEVE REMIS Status: Acute Current Visit: Yes (3) Obesity SNOMED Code(s): 548122281, 294250127 ICD Code: E66.9 - OBESITY, UNSPECIFIED Status: Acute Current Visit: Yes (4) Hyponatremia SNOMED Code(s): 07944107 ICD Code: E87.1 - HYPO-OSMOLALITY AND HYPONATREMIA Status: Acute Current Visit: Yes (5) Atrial fibrillation by electrocardiogram SNOMED Code(s): 732865268 ICD Code: I48.91 - UNSPECIFIED ATRIAL FIBRILLATION Status: Acute Current Visit: No (6) Pneumonia due to COVID-19 virus SNOMED Code(s): 914886232972149762 ICD Code: U07.1 - COVID-19; J12.89 - OTHER VIRAL PNEUMONIA Status: Acute Current Visit: No (7) Hyperkalemia SNOMED Code(s): 49860219 ICD Code: E87.5 - HYPERKALEMIA Status: Acute Current Visit: Yes (8) Atrial fibrillation with RVR SNOMED Code(s): 161505407257494 ICD Code: I48.91 - UNSPECIFIED ATRIAL FIBRILLATION Status: Acute Current Visit: Yes (9) Hyperglycemia SNOMED Code(s): 92766600 ICD Code: R73.9 - HYPERGLYCEMIA, UNSPECIFIED Status: Acute Current Visit: Yes (10) Hyperglycemia, drug-induced SNOMED Code(s): 541394801 ICD Code: R73.9 - HYPERGLYCEMIA, UNSPECIFIED; T50.905A - ADVERSE EFFECT OF UNSP DRUG/MEDS/BIOL SUBST, INIT Status: Acute Current Visit: Yes - Discharge Plan *PRESCRIPTION DRUG MONITORING PROGRAM REVIEWED*: No *COPY OF PRESCRIPTION DRUG MONITORING REPORT IN PATIENT RADHA: No Prescriptions/Med Rec: Diltiazem IR [Cardizem] 60 mg PO Q6HR #120 tablet dexAMETHasone [Dexamethasone] 6 mg PO DAILY #7 tab Apixaban [Eliquis] 5 mg PO BID #30 tablet Home Medications: Home Meds Acetaminophen 975 mg PO TID 01/12/17 [History] Albuterol [Proventil Neb Soln] 2.5 mg NEB Q6HRRT PRN 01/12/17 [History] Allopurinol [Zyloprim] 100 mg PO DAILY 01/12/17 [History] Ammonium Lactate [Lac-Hydrin Five] 226 gm TP ASDIRECTED PRN 01/12/17 [History] Budesonide/Formoterol [Symbicort 80-4.5 MCG] 2 puff INH BID 01/12/17 [History] Cholecalciferol (Vitamin D3) [Vitamin D3] 1,000 units PO BID 01/12/17 [History] Dextrose [Glucose] 4 gm PO ASDIRECTED PRN 01/12/17 [History] Insulin Glarg,Human.Rec.Analog [Lantus] 40 unit SUBCUT ACBREAKFAST 01/12/17 [History] Lisinopril 30 mg PO DAILY 01/12/17 [History] Loperamide [Imodium] 2 mg PO Q6H PRN 01/12/17 [History] Magnesium Oxide 420 mg PO BID 01/12/17 [History] OXcarbazepine [Trileptal] 450 mg PO TID 01/12/17 [History] Triamcinolone Acetonide [Triamcinolone Acetonide 0.1% Crm] 15 gm TOP BID 01/12/17 [History] metFORMIN HCl [Metformin HCl] 1,000 mg PO BIDMEALS 01/12/17 [History] Apixaban [Eliquis] 5 mg PO BID #30 tablet 06/18/20 [Rx] Diltiazem IR [Cardizem] 60 mg PO Q6HR #120 tablet 06/18/20 [Rx] Ibrutinib [Imbruvica] 420 mg PO DAILY #0 06/18/20 [Rx] dexAMETHasone [Dexamethasone] 6 mg PO DAILY #7 tab 06/18/20 [Rx] Forms: ED Department Discharge Referrals: PCP,Unobtain [Ordering Only Provider] - - Discharge Summary/Plan Comment DC Time >30 min.: Yes - General Info Date of Service: 06/18/20 Admission Dx/Problem (Free Text: Admission Diagnosis/Problem Admission Diagnosis/Problem Atrial fibrillation by electrocardiogram Subjective Update: No acute events overnight. Reports that he is doing okay. Heart rate improved. Saturating well on room air. Denies cough or shortness of breath. D enies fevers, chills, chest pain, n/v/d/c, dysuria, or any new symptoms. - Patient Data Vitals - Most Recent: Last Vital Signs Temp 97.5 F 06/18/20 08:00 Pulse 76 06/18/20 08:00 Resp 18 06/18/20 08:00 BP 152/87 H 06/18/20 08:18 Pulse Ox 92 L 06/18/20 08:00 Weight - Most Recent: 233 lb 3.2 oz I&O - Last 24 hours: Intake & Output 06/17/20 06/18/20 06/18/20 22:59 06:59 14:59 Intake Total 240 Balance 240 Lab Results - Last 24 hrs: Laboratory Results - last 24 hr 06/17/20 06/17/20 06/17/20 Range/Units 10:50 10:50 10:50 WBC (5.0-10.0) 10^3/uL RBC (4.6-6.2) 10^6/uL Hgb (14.0-18.0) g/dL Hct (40.0-54.0) % MCV (80-100) fL MCH (27.0-34.0) pg MCHC (33.0-35.0) g/dL Plt Count (150-450) 10^3/uL D-Dimer, Quantitative 130 (0-400) ng/mL Sodium (136-145) mmol/L Potassium (3.5-5.1) mmol/L Chloride (98-107) mmol/L Carbon Dioxide (21-32) mmol/L Anion Gap (7-13) mEq/L BUN (7-18) mg/dL Creatinine (0.70-1.30) mg/dL Est Cr Clr Drug Dosing mL/min Estimated GFR (MDRD) Glucose (74-99) mg/dL POC Glucose (70-105) mg/dl Calcium (8.5-10.1) mg/dL Phosphorus (2.6-4.7) mg/dL Magnesium (1.8-2.4) mg/dL Ferritin (26-388) mg/mL Total Bilirubin 0.4 (0.2-1.0) mg/dL Direct Bilirubin 0.2 (0.0-0.2) mg/dL Indirect Bilirubin 0.2 AST 24 (15-37) U/L ALT 37 (16-63) U/L Alkaline Phosphatase 55 (46-116) U/L C-Reactive Protein 2.0 H (0.0-0.9) mg/dL Total Protein 6.3 L (6.4-8.2) g/dL Albumin 3.3 L (3.4-5.0) g/dL Globulin 3.0 Albumin/Globulin Ratio 1.10 06/17/20 06/17/20 06/17/20 Range/Units 10:50 10:50 10:50 WBC 9.8 (5.0-10.0) 10^3/uL RBC 5.27 (4.6-6.2) 10^6/uL Hgb 15.4 (14.0-18.0) g/dL Hct 45.6 (40.0-54.0) % MCV 86.5 (80-100) fL MCH 29.2 (27.0-34.0) pg MCHC 33.8 (33.0-35.0) g/dL Plt Count 165 (150-450) 10^3/uL D-Dimer, Quantitative (0-400) ng/mL Sodium 138 (136-145) mmol/L Potassium 4.3 (3.5-5.1) mmol/L Chloride 102 (98-107) mmol/L Carbon Dioxide 28 (21-32) mmol/L Anion Gap 12.3 (7-13) mEq/L BUN 27 H (7-18) mg/dL Creatinine 1.02 (0.70-1.30) mg/dL Est Cr Clr Drug Dosing 76.90 mL/min Estimated GFR (MDRD) > 60 Glucose 213 H (74-99) mg/dL POC Glucose (70-105) mg/dl Calcium 8.5 (8.5-10.1) mg/dL Phosphorus 3.1 (2.6-4.7) mg/dL Magnesium 1.9 (1.8-2.4) mg/dL Ferritin 584 H (26-388) mg/mL Total Bilirubin (0.2-1.0) mg/dL Direct Bilirubin (0.0-0.2) mg/dL Indirect Bilirubin AST (15-37) U/L ALT (16-63) U/L Alkaline Phosphatase (46-116) U/L C-Reactive Protein (0.0-0.9) mg/dL Total Protein (6.4-8.2) g/dL Albumin (3.4-5.0) g/dL Globulin Albumin/Globulin Ratio 06/17/20 06/17/20 06/17/20 Range/Units 12:14 17:29 21:46 WBC (5.0-10.0) 10^3/uL RBC (4.6-6.2) 10^6/uL Hgb (14.0-18.0) g/dL Hct (40.0-54.0) % MCV (80-100) fL MCH (27.0-34.0) pg MCHC (33.0-35.0) g/dL Plt Count (150-450) 10^3/uL D-Dimer, Quantitative (0-400) ng/mL Sodium (136-145) mmol/L Potassium (3.5-5.1) mmol/L Chloride (98-107) mmol/L Carbon Dioxide (21-32) mmol/L Anion Gap (7-13) mEq/L BUN (7-18) mg/dL Creatinine (0.70-1.30) mg/dL Est Cr Clr Drug Dosing mL/min Estimated GFR (MDRD) Glucose (74-99) mg/dL POC Glucose 219 H 361 H 393 H (70-105) mg/dl Calcium (8.5-10.1) mg/dL Phosphorus (2.6-4.7) mg/dL Magnesium (1.8-2.4) mg/dL Ferritin (26-388) mg/mL Total Bilirubin (0.2-1.0) mg/dL Direct Bilirubin (0.0-0.2) mg/dL Indirect Bilirubin AST (15-37) U/L ALT (16-63) U/L Alkaline Phosphatase (46-116) U/L C-Reactive Protein (0.0-0.9) mg/dL Total Protein (6.4-8.2) g/dL Albumin (3.4-5.0) g/dL Globulin Albumin/Globulin Ratio 06/18/20 06/18/20 06/18/20 Range/Units 06:23 06:23 06:23 WBC (5.0-10.0) 10^3/uL RBC (4.6-6.2) 10^6/uL Hgb (14.0-18.0) g/dL Hct (40.0-54.0) % MCV (80-100) fL MCH (27.0-34.0) pg MCHC (33.0-35.0) g/dL Plt Count (150-450) 10^3/uL D-Dimer, Quantitative 109 (0-400) ng/mL Sodium (136-145) mmol/L Potassium (3.5-5.1) mmol/L Chloride (98-107) mmol/L Carbon Dioxide (21-32) mmol/L Anion Gap (7-13) mEq/L BUN (7-18) mg/dL Creatinine (0.70-1.30) mg/dL Est Cr Clr Drug Dosing mL/min Estimated GFR (MDRD) Glucose (74-99) mg/dL POC Glucose (70-105) mg/dl Calcium (8.5-10.1) mg/dL Phosphorus (2.6-4.7) mg/dL Magnesium (1.8-2.4) mg/dL Ferritin (26-388) mg/mL Total Bilirubin 0.4 (0.2-1.0) mg/dL Direct Bilirubin 0.2 (0.0-0.2) mg/dL Indirect Bilirubin 0.2 AST 20 (15-37) U/L ALT 37 (16-63) U/L Alkaline Phosphatase 66 (46-116) U/L C-Reactive Protein 1.6 H (0.0-0.9) mg/dL Total Protein 6.5 (6.4-8.2) g/dL Albumin 3.4 (3.4-5.0) g/dL Globulin 3.1 Albumin/Globulin Ratio 1.1 06/18/20 06/18/20 06/18/20 Range/Units 06:23 06:23 06:23 WBC 8.8 (5.0-10.0) 10^3/uL RBC 5.26 (4.6-6.2) 10^6/uL Hgb 15.4 (14.0-18.0) g/dL Hct 45.5 (40.0-54.0) % MCV 86.5 (80-100) fL MCH 29.3 (27.0-34.0) pg MCHC 33.8 (33.0-35.0) g/dL Plt Count 186 (150-450) 10^3/uL D-Dimer, Quantitative (0-400) ng/mL Sodium 140 (136-145) mmol/L Potassium 4.3 (3.5-5.1) mmol/L Chloride 102 (98-107) mmol/L Carbon Dioxide 29 (21-32) mmol/L Anion Gap 13.3 H (7-13) mEq/L BUN 27 H (7-18) mg/dL Creatinine 0.98 (0.70-1.30) mg/dL Est Cr Clr Drug Dosing 80.04 mL/min Estimated GFR (MDRD) > 60 Glucose 250 H (74-99) mg/dL POC Glucose (70-105) mg/dl Calcium 8.9 (8.5-10.1) mg/dL Phosphorus 3.9 (2.6-4.7) mg/dL Magnesium 1.9 (1.8-2.4) mg/dL Ferritin 617 H (26-388) mg/mL Total Bilirubin (0.2-1.0) mg/dL Direct Bilirubin (0.0-0.2) mg/dL Indirect Bilirubin AST (15-37) U/L ALT (16-63) U/L Alkaline Phosphatase (46-116) U/L C-Reactive Protein (0.0-0.9) mg/dL Total Protein (6.4-8.2) g/dL Albumin (3.4-5.0) g/dL Globulin Albumin/Globulin Ratio 06/18/20 Range/Units 08:13 WBC (5.0-10.0) 10^3/uL RBC (4.6-6.2) 10^6/uL Hgb (14.0-18.0) g/dL Hct (40.0-54.0) % MCV (80-100) fL MCH (27.0-34.0) pg MCHC (33.0-35.0) g/dL Plt Count (150-450) 10^3/uL D-Dimer, Quantitative (0-400) ng/mL Sodium (136-145) mmol/L Potassium (3.5-5.1) mmol/L Chloride (98-107) mmol/L Carbon Dioxide (21-32) mmol/L Anion Gap (7-13) mEq/L BUN (7-18) mg/dL Creatinine (0.70-1.30) mg/dL Est Cr Clr Drug Dosing mL/min Estimated GFR (MDRD) Glucose (74-99) mg/dL POC Glucose 261 H (70-105) mg/dl Calcium (8.5-10.1) mg/dL Phosphorus (2.6-4.7) mg/dL Magnesium (1.8-2.4) mg/dL Ferritin (26-388) mg/mL Total Bilirubin (0.2-1.0) mg/dL Direct Bilirubin (0.0-0.2) mg/dL Indirect Bilirubin AST (15-37) U/L ALT (16-63) U/L Alkaline Phosphatase (46-116) U/L C-Reactive Protein (0.0-0.9) mg/dL Total Protein (6.4-8.2) g/dL Albumin (3.4-5.0) g/dL Globulin Albumin/Globulin Ratio Med Orders - Current: Current Medications Acetaminophen (Tylenol) 650 mg PO Q4H PRN PRN Reason: Pain Last Admin: 06/16/20 21:36 Dose: 650 mg Documented by: Albuterol (Proventil Neb Soln) 2.5 mg NEB Q6HRRT PRN PRN Reason: Shortness of Breath Allopurinol (Zyloprim) 100 mg PO DAILY [facility], [facility] Last Admin: 06/17/20 09:02 Dose: 100 mg Documented by: Apixaban (Eliquis) 5 mg PO BID [facility], [facility] Last Admin: 06/18/20 08:18 Dose: 5 mg Documented by: Benzocaine/Menthol (Cepacol Sore Throat) 1 lozenge MUCMEM QID PRN PRN Reason: Cough Last Admin: 06/15/20 23:40 Dose: 1 lozenge Documented by: Cholecalciferol (Vitamin D3) 25 mcg PO BID [facility], [facility]1983 Last Admin: 06/18/20 08:18 Dose: 25 mcg Documented by: Dexamethasone (Decadron) 6 mg IVPUSH DAILY [facility], [facility]1983 Stop: 06/24/20 09:01 Last Admin: 06/18/20 08:17 Dose: 6 mg Documented by: Dextrose/Water (Dextrose 50% In Water) 25 ml IVPUSH ASDIRECTED PRN PRN Reason: Hypoglycemia Dextrose/Water (Dextrose 50% In Water) 50 ml IV ASDIRECTED PRN PRN Reason: Hypoglycemia Diltiazem HCl (Cardizem) 60 mg PO Q6HR [facility], [facility]1983 Last Admin: 06/18/20 06:29 Dose: 60 mg Documented by: Famotidine (Pepcid) 20 mg PO BID [facility] Last Admin: 06/18/20 08:18 Dose: 20 mg Documented by: Glucagon (Glucagen) 1 mg IM ASDIRECTED PRN PRN Reason: Hypoglycemia Remdesivir 100 mg/ Sodium (Chloride) 100 mls @ 100 mls/hr IV Q24H [facility]1983 Stop: 06/19/20 21:59 Last Admin: 06/17/20 22:20 Dose: 100 mls/hr Documented by: Diltiazem HCl 125 mg/ Sodium (Chloride) 125 mls @ 5 mls/hr IV TITRATE [facility], [facility]; Protocol Last Titration: 06/17/20 15:59 Dose: 0 mg/hr, 0 mls/hr Documented by: Insulin Glargine (Lantus) 40 unit SUBCUT BEDTIME [facility], [facility]–1983 Last Admin: 06/17/20 21:53 Dose: 40 units Documented by: Insulin Human Lispro (Humalog) 0 unit SUBCUT WITHMEALSANDBED [facility], [facility]–1983; Protocol Last Admin: 06/18/20 08:22 Dose: 6 unit Documented by: Insulin Human Lispro (Humalog) 15 unit SUBCUT TIDMEALS [facility], [facility]1983 Last Admin: 06/18/20 08:22 Dose: 15 unit Documented by: Lisinopril (Prinivil) 2.5 mg PO DAILY [facility] Last Admin: 06/18/20 08:18 Dose: 2.5 mg Documented by: Loperamide HCl (Imodium) 2 mg PO ASDIRECTED PRN PRN Reason: Diarrhea Last Admin: 06/17/20 18:37 Dose: 2 mg Documented by: Magnesium Oxide (Magnesium Oxide) 500 mg PO BID [facility] Last Admin: 06/18/20 08:18 Dose: 500 mg Documented by: Mometasone Furoate/Formoterol Fumar (Dulera 100-5 Mcg) 2 puff IH BID [facility]1983 Last Admin: 06/18/20 08:19 Dose: 2 puff Documented by: Ondansetron HCl (Zofran Odt) 4 mg PO Q6H PRN PRN Reason: nausea, able to take PO Ondansetron HCl (Zofran) 4 mg IVPUSH Q6H PRN PRN Reason: Nausea/Vomiting Oxcarbazepine (Trileptal) 450 mg PO TID [facility] Last Admin: 06/18/20 08:33 Dose: Not Given Documented by: Senna/Docusate Sodium (Senna Plus) 1 tab PO BEDTIME PRN PRN Reason: Constipation Discontinued Medications Benzocaine/Menthol (Cepacol Sore Throat) 1 lozenge MUCMEM ONETIME ONE Stop: 06/15/20 18:03 Last Admin: 06/15/20 18:09 Dose: 1 lozenge Documented by: Dexamethasone (Dexamethasone) 6 mg PO ONETIME ONE Stop: 06/15/20 18:51 Last Admin: 06/15/20 19:44 Dose: 6 mg Documented by: Dextrose/Water (Dextrose 50% In Water) 25 ml IVPUSH ONETIME ONE Stop: 06/16/20 11:01 Last Admin: 06/16/20 11:15 Dose: 25 ml Documented by: Diltiazem HCl (Cardizem) 30 mg PO Q6HR [facility] Diltiazem HCl (Cardizem) 30 mg PO Q6HR [facility] Last Admin: 06/16/20 18:28 Dose: 30 mg Documented by: Diphenhydramine HCl (Benadryl) 25 mg IVPUSH ONETIME ONE Stop: 06/15/20 20:45 Last Admin: 06/16/20 05:16 Dose: 25 mg Documented by: Diphenhydramine HCl (Benadryl) Confirm Administered Dose 50 mg .ROUTE .STK-MED ONE Stop: 06/16/20 05:14 Last Admin: 06/16/20 05:29 Dose: Not Given Documented by: Furosemide (Lasix) 40 mg IVPUSH NOW ONE Stop: 06/16/20 11:01 Last Admin: 06/16/20 11:19 Dose: 40 mg Documented by: Remdesivir 200 mg/ Sodium (Chloride) 210 mls @ 210 mls/hr IV ONETIME ONE Stop: 06/15/20 20:47 Last Infusion: 06/16/20 05:03 Dose: Infused Documented by: Diltiazem HCl 125 mg/ Sodium (Chloride) 125 mls @ 5 mls/hr IV TITRATE [facility], [facility]; Protocol Last Titration: 06/16/20 23:40 Dose: 5 mg/hr, 5 mls/hr Documented by: Insulin Regular in 0.9 % NACL (Myxredlin 100 Unit/100 Ml) 100 unit in 100 mls @ 10.578 mls/hr IV TITRATE SILAS; Protocol Last Titration: 06/17/20 05:35 Dose: 0 units/kg/hr, 0 mls/hr Documented by: Insulin Glargine (Lantus) 30 unit SUBCUT BEDTIME [facility]ILAS Last Admin: 06/16/20 21:43 Dose: 30 unit Documented by: Insulin Human Regular (Humulin R) 10 unit IV ONETIME ONE Stop: 06/16/20 11:01 Last Admin: 06/16/20 11:18 Dose: 10 units Documented by: Insulin Human Regular (Humulin R) 10 unit IV ONETIME ONE Stop: 06/16/20 14:24 Last Admin: 06/16/20 14:53 Dose: 10 units Documented by: Insulin Human Regular (Humulin R) 10 unit IV ONETIME ONE Stop: 06/16/20 18:12 Last Admin: 06/16/20 18:28 Dose: 10 units Documented by: Loperamide HCl (Imodium) 2 mg PO Q6H PRN PRN Reason: Diarrhea Last Admin: 06/17/20 14:18 Dose: 2 mg Documented by: Metoprolol Tartrate (Lopressor) 25 mg PO Q12H [facility] Last Admin: 06/16/20 09:47 Dose: 25 mg Documented by: Metoprolol Tartrate (Lopressor) 5 mg IVPUSH ONETIME ONE Stop: 06/16/20 09:39 Last Admin: 06/16/20 09:48 Dose: 5 mg Documented by: Sodium Bicarbonate (Sodium Bicarbonate 4.2%) 5 meq IVPUSH ONETIME ONE Stop: 06/16/20 11:01 Last Admin: 06/16/20 11:16 Dose: 5 meq Documented by: Sodium Polystyrene Sulfonate (Kayexalate) 15 gm PO Q6H [facility]IL[facility] Stop: 06/16/20 16:31 Last Admin: 06/16/20 18:07 Dose: Not Given Documented by: - Exam General: Reports: Alert, Oriented, Cooperative, No Acute Distress HEENT: Reports: Pupils Equal, Pupils Reactive Lungs: Reports: Clear to Auscultation, Normal Respiratory Effort Cardiovascular: Reports: Regular Rate, No Murmurs, Irregular Rhythm GI/Abdominal Exam: Normal Bowel Sounds, Soft, Non-Tender, No Distention Extremities: Normal Inspection, Non-Tender, No Pedal Edema Skin: Reports: Warm, Dry, Intact Psy/Mental Status: Reports: Alert, Normal Affect, Normal Mood
[2020-06-18] MEDS: Allopurinol 100 MG Tab PO SCH (12:06)
== END 2020-06-18 13:30 | disposition home or self-care (01) | DRG 177 ==
LOC: DL.ED 17:01 → DL.MS 19:56 → OBSVTOIN 06-17 11:44
PROVIDERS: ADMIT Internal Medicine; ATTEND Internal Medicine
PROC: XW033E5 Introduction of Remdesivir Anti-infective into Peripheral Vein, Percutaneous Approach, New Technology Group 5 (ICD-10-PCS; principal; 2020-06-17)
PROC: XW13325 Transfusion of Convalescent Plasma (Nonautologous) into Peripheral Vein, Percutaneous Approach, New Technology Group 5 (ICD-10-PCS; 2020-06-17)
DX: U07.1 COVID-19 (principal); J12.89 Other viral pneumonia; C91.10 Chronic lymphocytic leukemia of B-cell type not having achieved remission; E87.1 Hypo-osmolality and hyponatremia; D84.9 Immunodeficiency, unspecified; J44.9 Chronic obstructive pulmonary disease, unspecified; E66.9 Obesity, unspecified; I48.91 Unspecified atrial fibrillation; E87.5 Hyperkalemia; E78.00 Pure hypercholesterolemia, unspecified; I10 Essential (primary) hypertension; E11.42 Type 2 diabetes mellitus with diabetic polyneuropathy; G89.29 Other chronic pain; K21.9 Gastro-esophageal reflux disease without esophagitis; E11.21 Type 2 diabetes mellitus with diabetic nephropathy; M10.9 Gout, unspecified; F43.10 Post-traumatic stress disorder, unspecified; F32.9 Major depressive disorder, single episode, unspecified; L40.9 Psoriasis, unspecified; M54.9 Dorsalgia, unspecified; Z79.899 Other long term (current) drug therapy; Z79.84 Long term (current) use of oral hypoglycemic drugs; Z91.030 Bee allergy status; Z98.49 Cataract extraction status, unspecified eye; Z98.890 Other specified postprocedural states
CPT/HCPCS: 36415; 36430; 71045; 80048; 80053; 80076; 82728; 82947; 82962; 83605; 83735; 84100; 84443; 84484; 85025; 85027; 85379; 86140; 86900; 86901; 93005; 93010; 99222; 99232; 99239; 99284; 99285-25; A9270-GY; J1100; J1200; J1815-GY; J1940; J3490; J7050; J8540; P9017

== ENCOUNTER 2020-06-25 21:28 | Emergency (ER) | payer OTHER ==
[2020-06-25] MEDS ORDERED: Diltiazem 25 MG/5 ML SDV IVPUSH ONE (21:43)
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
[2020-06-25 22:19] LABS: ANION GAP 13.4 mEq/L (7-13); CHLORIDE,CL 92 mmol/L (98-107); SODIUM,NA 124 mmol/L (136-145)
[2020-06-25] MEDS ORDERED: Diltiazem 125 MG in Sodium Chloride 0.9% 100 ML IV SCH (22:30)
--- NOTE | 2020-06-25 22:35 | CR ---
PROCEDURE INFORMATION: Exam: XR Chest, 1 View Exam date and time: 06/25/2020 10:24 PM Age: 65 years old Clinical indication: Dyspnea and shortness of breath and other: Tachycardia, hypoxia; Additional info: Covid TECHNIQUE: Imaging protocol: XR of the chest Views: 1 view. COMPARISON: CR Chest 1V Frontal 06/15/2020 6:55 PM FINDINGS: Lungs: Interval progression of bilateral multifocal ground-glass as well as more consolidative lung opacities. Pleural space: Unremarkable. No pleural effusion. No pneumothorax. Heart/Mediastinum: Unremarkable. No cardiomegaly. Diaphragm: Minimally elevated left hemidiaphragm. Bones/joints: Unremarkable. IMPRESSION: Interval progression of multifocal bilateral ground-glass and more consolidative airspace opacities compatible with multifocal pneumonia. The appearance is compatible with COVID-19 infection.
[2020-06-25] MEDS ORDERED: Glucagon,Human Recombinant 1 MG Vial IM PRN (22:38)
[2020-06-25] MEDS ORDERED: 50% Dextrose in Water 50 ML Syringe IV PRN (22:38)
[2020-06-25] MEDS ORDERED: Insulin Regular, Human 100 Units/ML 3 ML Vial IV ONE (22:38)
[2020-06-25 22:47] LABS: BASE EXCESS ARTERIAL -2 mmol/L ((-2)-(+3)); BICARBONATE,ARTERIAL 19.8 mmol/L (22-26); O2 DELIVERY DEVICE OM; O2 SATURATION ARTERIAL 96 % (95-100); PCO2 ARTERIAL 29 mmHg (35-45); PO2 ARTERIAL 83 mmHg (70-100)
[2020-06-25 22:48] VITALS: BP 97/65; PULSE 167
[2020-06-25 22:48] LABS: ALLEN TEST PERFORMED
== END 2020-06-25 23:18 ==
LOC: DL.ED 21:28
DX: U07.1 COVID-19 (principal); J12.89 Other viral pneumonia; I48.0 Paroxysmal atrial fibrillation; I47.1 Supraventricular tachycardia; E87.1 Hypo-osmolality and hyponatremia; R09.02 Hypoxemia; I10 Essential (primary) hypertension; E11.51 Type 2 diabetes mellitus with diabetic peripheral angiopathy without gangrene; E66.9 Obesity, unspecified; M10.9 Gout, unspecified; F32.9 Major depressive disorder, single episode, unspecified; Z91.030 Bee allergy status; Z79.4 Long term (current) use of insulin; Z79.01 Long term (current) use of anticoagulants; Z79.899 Other long term (current) drug therapy
CPT/HCPCS: 36415; 36600; 71045; 80053; 82803; 83605; 83735; 84484; 85025; 85379; 85610; 86140; 87040; 93005; 96365; 96376; 99284; 99285; J1815; J3490